=== PATIENT | female | born 2000 | race Caucasian/White ===

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

== ENCOUNTER → 2022-04-17 08:33 | Outpatient (BNVA) | payer BC, SELFPAY | PROVIDERS: Visit Provider Family Medicine Adult Medicine | DX: R30.0 Dysuria (principal); N39.0 Urinary tract infection, site not specified | CPT/HCPCS: 81000 ==

== ENCOUNTER → 2022-09-17 09:27 | Outpatient (BNVA) | payer BC, SELFPAY | PROVIDERS: Visit Provider Nurse Practitioner Family | DX: R30.0 Dysuria (principal); N30.00 Acute cystitis without hematuria | CPT/HCPCS: 81000; 87086 ==

== ENCOUNTER 2023-05-20 09:13 | Inpatient (IN) | payer BC, SELFPAY ==
[2023-05-20 09:24] VITALS: BMI 24.4
[2023-05-20 09:29] VITALS: BP 104/70; PULSE 59; RESP 16; TEMP 37; O2SAT 98
[2023-05-20 09:57] LABS: Eosinophils # 0.1 10^3/uL (0.0-0.8); Eosinophils % 1.5 %; Hematocrit 33.8 % (36-47); Lymphocytes # 1.2 10^3/uL (1.5-6.5); Lymphocytes % 29.7 %; Mean Corpuscular HGB Conc 33.4 g/dL (30-55); Mean Corpuscular Hemoglobin 33.6 pg (27-33); Mean Corpuscular Volume 100.6 fl (85-98); Mean Platelet Volume 10.7 fL (7.4-10.4); Monocytes # 0.3 10^3/uL (0.2-0.9); Monocytes % 7.9 %; Neutrophils % 59.4 %; Nucleated Red Blood Cells % 0 %; Platelet Count 207 10^3/cmm (157-399); Red Blood Count 3.36 10^6/uL (3.85-5.65); White Blood Count 4.04 10^3/uL (4.5-13.0)
--- NOTE | 2023-05-20 09:57 | W.ED.PSYCHS ---
HPI - Psych General: Chief Complaint: Psychiatric Symptoms Stated Complaint: SI Time Seen by Provider: 05/20/23 09:39 Source: patient Mode of arrival: ambulatory History of Present Illness: 22-year-old female presents emergency room with complaint of suicidal ideations plan to harm self by cutting herself with a knife at the wrists. Evidently this has been an ongoing issue for a couple of years she has never done anything to advance lethality its become worse recently. She denies previous hospitalizations for same MD complaint: suicidal ideation and feels depressed Duration: intermittent, changing over time and getting worse Relieving factors: none Exacerbating factors: none Associated symptoms: Reports depression and suicidal ideation Treatments prior to arrival: none If self harm: admits thoughts of self harm and has plan Review of Systems Const: Denies: fever(s) or chills Card: Denies: chest pain Resp: Denies: dyspnea GI: Denies: abdominal pain : Denies: dysuria, urinary frequency or urinary urgency Musc: Denies: neck pain or back pain Skin/Breast: Denies: rash Psych: Reports: depression and suicidal ideation [facility] ED PFSH: Medical History UTI (urinary tract infection) Pyelonephritis of left kidney Social History Smoking and tobacco/nicotine status: never used tobacco/nicotine Alcohol intake: never Substance/Drug Use: never Physical Exam Const: COMMON NORMALS: no acute distress GENERAL APPEARANCE: cooperative and comfortable ORIENTATION/CONSCIOUSNESS: Yes awake, Yes oriented to person, Yes oriented to place and Yes oriented to time HENMT: COMMON NORMALS: normocephalic, atraumatic and hearing grossly normal bilaterally HEAD & SCALP: normocephalic and atraumatic Resp: COMMON NORMALS: normal respiratory effort, No retractions, No use of accessory muscles and clear to auscultation bilaterally AUSCULTATION: clear to auscultation bilaterally Extremity: COMMON NORMALS: normal to inspection, capillary refill normal, no clubbing, cyanosis or edema, no calf tenderness and no pedal edema Neuro: SENSORIUM/ORIENTATION: Yes oriented to person, Yes oriented to place and Yes oriented to time Skin: COMMON NORMALS: no rashes or lesions noted GENERAL SKIN EXAM: no rashes or lesions noted Course Vital Signs: Vital signs: Vital Signs Temperature 98.6 F 05/20/23 09:29 Pulse Rate 59 L 05/20/23 09:29 Respiratory Rate 16 05/20/23 09:29 Blood Pressure 104/70 05/20/23 09:29 Pulse Oximetry 98 05/20/23 09:29 Oxygen Delivery Me thod Room Air 05/20/23 09:29 MDM - Psych Medical Decision Making Patient currently not on any medications having suicidal ideation with increasing intrusive thoughts. Will admit her for suicidal ideation to [facility]PU discussed Dr. Lizarraga orders written Differential Diagnosis Likely suicidal ideation and depression Medical Records I reviewed the patient's medical records. Lab Data I reviewed the patient's lab results. 05/20/23 09:51 05/20/23 09:51 No radiology studies performed this visit Discharge Plan Discharge Patient Disposition: Admitted As Inpatient Clinical Impression: Suicidal ideation, Depression Condition: Stable Prescriptions: No Action nitrofurantoin monohyd/m-cryst [Macrobid] 100 mg capsule 100 mg PO BID 3 Days Qty: 6 0RF Rx Instructions: must administer with a meal/food Patient Instructions: Opioid Safety, Pain Management Coding Level of Care Code ED Quarry Boss for Bebo Dubose
[2023-05-20 10:17] LABS: Acetaminophen < 5.0 ug/mL (10-30); Alanine Aminotransferase 93 U/L (0-33); Albumin Level 5.1 g/dL (3.5-5.2); Alkaline Phosphatase 106 U/L (35-105); Anion Gap 15.3 (5-19); Aspartate Amino Transferase 109 U/L (0-32); Blood Urea Nitrogen 18 mg/dL (6-20); Carbon Dioxide 26 mmol/L (22-29); Chloride 97 mmol/L (98-107); Globulin 3.2 g/dL (1.3-4.6); Glomerular Filtration Rate 44.3 mL/min (90-130); Glucose 108 mg/dL (65-115); Osmolality Calculated 280 mOsm/kg (285-295); Potassium 4.3 mmol/L (3.5-5.1); Salicylate < 0.3 mg/dL (3-10); Sodium 134 mmol/L (136-145); Total Bilirubin 0.8 mg/dL (0.15-1.2); Total Protein 8.3 g/dL (6.6-8.7)
[2023-05-20 10:22] LABS: HCG, Serum Qual Negative (Negative)
[2023-05-20 11:19] VITALS: BMI 23.4
[2023-05-20 11:20] VITALS: BP 90/56; PULSE 58; RESP 14; TEMP 36.9; O2SAT 97
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
[2023-05-20 13:44] LABS: Hepatitis C Virus Antibody Non-Reactive (Nonreactive)
[2023-05-20 14:00] VITALS: BP 89/58; PULSE 69; RESP 13; TEMP 36.8; O2SAT 95
[2023-05-20 20:39] VITALS: BP 99/72; PULSE 67; RESP 16; TEMP 36.7; O2SAT 93
[2023-05-21 06:00] VITALS: BP 91/66; PULSE 83; RESP 18; TEMP 36.7; O2SAT 96
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
[2023-05-21] MEDS: fluoxetine 20 mg Capsule PO (13:27)
[2023-05-21 14:00] VITALS: BP 90/60; PULSE 59; RESP 18; TEMP 36.6; O2SAT 98
[2023-05-21 20:33] VITALS: BP 91/55; PULSE 76; RESP 15; TEMP 36.4; O2SAT 96
[2023-05-22 06:00] VITALS: BP 99/66; PULSE 64; RESP 18; TEMP 36.7; O2SAT 99
[2023-05-22] MEDS: fluoxetine 20 mg Capsule PO (07:58)
[2023-05-22 14:00] VITALS: BP 98/68; PULSE 62; RESP 18; TEMP 36.3; O2SAT 95
--- NOTE | 2023-05-22 17:17 | P.NPUPN_ITS ---
Subjective NPU 2 Subjective: 22-year-old female with a history of dep ression admitted with suicidal ideation. She endorsed an extended history of depression. She had reported no thoughts of cutting herself at this time. She reported having frequent flashbacks regarding her past trauma. She had reported having minimal amounts of nightmares but did state that she had difficulties falling asleep. She reported a history of sleep continuity disruption. She had reported some feelings of hopelessness in the past. She reported no side effects from her medication. She had reported some difficulties with concentration. Mental Status Exam 2 MSE Comments: This is a well-nourished well-developed white female, in hospital scrubs, with adequate grooming and eye contact. No abnormal movements except for signficant psychomotor retardation. She was cooperative with exam in mild distress. Her speech was normal in rate, rhythm and volume. Mood described as a better. Her affect remained flat. Thought process was linear and organized. Thought content: patient denied any suicidal or homicidal ideation, there were no delusions reported or noted, patient denied any auditory or visual hallucinations. Attention, concentration, and memory appeared intact, but none were formally tested. Alert and oriented times three. Insight is fair and judgment appear fair. Impulse control is fair. Vitals/I&O/Wt Last Vital Signs Temp 97.3 F L 05/22/23 14:00 Pulse 62 05/22/23 14:00 Resp 18 05/22/23 14:00 BP 98/68 05/22/23 14:00 Pulse Ox 95 05/22/23 14:00 O2 Del Method Room Air 05/22/23 14:00 Data NPU 05/20/23 09:51 05/20/23 09:51 A&P Assessment and plan (1) Suicidal ideation: (2) Depression: (3) UTI (urinary tract infection): Qualifiers: Urinary tract infection type: acute cystitis Hematuria presence: w [facility] hematuria Qualified Code(s): N30.00 - Acute cystitis without hematuria Plan This is a 22-year-old, white female, with genetic loading for mental health and addiction issues, reporting depression for the last several years and recent suicidal thoughts, with no history of psychiatric interventions, with a willingness to start medication. 1. Continue Prozac 20 mg p.o. every morning. 2. Encourage individual, group, and milieu therapy. 3. Continue q-15-minute checks for safety. Involuntary Hold Information 2 96 Hour Hold: 96 Hour Involuntary Admission: No Attestations NPU 2 Medical Necessity Statement*: Inpatient hospitalization is medically necessary and the clinically appropriate intervention, at this time. We will monitor medications and make changes as indicated. Patient will be in the hospital for over two midnights. Likely length of stay is two to four days. Coding Level of Care Code Acute Code for g Fwd Diagnoses Suicidal ideation R45.851 Depression F32.A Acute cystitis without hematuria N30.00 Urinary tract infection type: acute cystitis Hematuria presence: without hematuria
[2023-05-22 20:12] VITALS: BP 92/64; PULSE 90; RESP 16; TEMP 36.5; O2SAT 96
[2023-05-23 06:00] VITALS: BP 91/55; PULSE 114; RESP 15; TEMP 36.6; O2SAT 96
[2023-05-23] MEDS: fluoxetine 20 mg Capsule PO (08:23)
--- NOTE | 2023-05-23 12:50 | P.NPUPN_ITS ---
Subjective NPU 2 Subjective: 22-year-old female with a history of dep ression admitted with suicidal ideation. She endorsed an extended history of depression that had been worse in the winter months. She endorsed PTSD related symptoms. She reports some feelings of hopelessness. She had reported no previous medication trials prior to prozac. She reports low energy and hypersomnia. Patient reports no suicidal thoughts currently. She reports struggles with concentration and memory with her depression. She endorsed no thoughts of self injury today. She remains somewhat isolative on the milieu. Mental Status Exam 2 MSE Comments: This is a well-nourished well-developed white female, in hospital scrubs, with adequate grooming and eye contact. No abnormal movements except for signficant psychomotor retardation. She was cooperative with exam in mild distress. Her speech was normal in rate, rhythm and volume. Mood described as better. Her affect was restricted in range. Thought process was linear and organized. Thought content: patient denied any suicidal or homicidal ideation, there were no delusions reported or noted, patient denied any auditory or visual hallucinations. Attention, concentration, and memory appeared intact, but none were formally tested. Alert and oriented times three. Insight is fair and judgment appear fair. Impulse control is fair. Vitals/I&O/Wt Last Vital Signs Temp 97.9 F 05/23/23 06:00 Pulse 114 H 05/23/23 06:00 Resp 15 05/23/23 06:00 BP 91/55 05/23/23 06:00 Pulse Ox 96 05/23/23 06:00 O2 Del Method Room Air 05/23/23 06:00 Weight last 48 hrs Weight 58.06 kg Data NPU 05/20/23 09:51 05/20/23 09:51 A&P Assessment and plan (1) Suicidal ideation: (2) Depression: (3) UTI (urinary tract infection): Qualifiers: Urinary tract infection type: acute cystitis Hematuria presence: w [facility] hematuria Qualified Code(s): N30.00 - Acute cystitis without hematuria Plan This is a 22-year-old, white female, with genetic loading for mental health and addiction issues, reporting depression for the last several years and recent suicidal thoughts, with no history of psychiatric interventions, with a willingness to start medication. 1. Continue Prozac 20 mg p.o. every morning. 2. Encourage individual, group, and milieu therapy. 3. Continue q-15-minute checks for safety. Involuntary Hold Information 2 96 Hour Hold: 96 Hour Involuntary Admission: No Attestations NPU 2 Medical Necessity Statement*: Inpatient hospitalization is medically necessary and the clinically appropriate intervention, at this time. We will monitor medications and make changes as indicated. Patient will be in the hospital for over two midnights. Likely length of stay is two to three days. Coding Level of Care Code Acute Code for [facility] Fwd Diagnoses Suicidal ideation R45.851 Depression F32.A Acute cystitis without hematuria N30.00 Urinary tract infection type: acute cystitis Hematuria presence: without hematuria
[2023-05-23 14:00] VITALS: BP 93/64; PULSE 56; RESP 14; TEMP 36.8; O2SAT 100
[2023-05-23 19:29] VITALS: BP 89/62; PULSE 58; RESP 18; TEMP 36.7; O2SAT 96
[2023-05-24 06:00] VITALS: BP 91/64; PULSE 87; RESP 16; O2SAT 98
[2023-05-24] MEDS: fluoxetine 20 mg Capsule PO (07:32)
[2023-05-24 12:11] VITALS: BP 91/64; PULSE 87; RESP 16; O2SAT 98
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
== END 2023-05-24 14:01 | disposition home or self-care (01) | DRG 881 ==
LOC: ER 10:06 → NP 10:34
PROVIDERS: Admitting Provider Psychiatry & Neurology Psychiatry; Emergency Provider Family Medicine; Visit Provider Psychiatry & Neurology Psychiatry
DX: F32.A Depression, unspecified (principal); R45.851 Suicidal ideations; F41.9 Anxiety disorder, unspecified; Z81.8 Family history of other mental and behavioral disorders
CPT/HCPCS: 36415; 80053; 80307; 84703; 85025; 86803; 97150; 97165; 99285

== ENCOUNTER 2023-06-28 00:59 | Inpatient (IN) | payer BC, MEDICAID, SELFPAY ==
[2023-06-28 01:03] VITALS: BP 103/55; PULSE 65; RESP 15; TEMP 36.7; O2SAT 100; BMI 23.4
--- NOTE | 2023-06-28 01:06 | W.ED.PSYCHS ---
HPI - Psych General: Chief Complaint: Psychiatric Symptoms Stated Complaint: SI Time Seen by Provider: 06/28/23 01:00 Source: patient Mode of arrival: ambulatory Limitations: no limitations History of Present Illness: 22-year-old female has a history of depression states that she is having suicidal thoughts she states she has had a plan to cut her wrist with a steak knife to kill herself. Patient has had previous SI in the past denies any worsening proving factors. PFS ED PFSH: Medical History UTI (urinary tract infection) Pyelonephritis of left kidney Social History Smoking and tobacco/nicotine status: never used tobacco/nicotine Alcohol intake: never Substance/Drug Use: never Physical Exam Const: COMMON NORMALS: no acute distress, patient oriented x3 and healthy appearing HENMT: COMMON NORMALS: normocephalic and atraumatic HEAD & SCALP: normocephalic and atraumatic Neck/C-Spine: COMMON NORMALS: full ROM and supple Chest: COMMONS NORMALS: normal inspection of the chest Resp: COMMON NORMALS: normal respiratory effort Cardio: COMMON NORMALS: regular rate, regular rhythm and No murmurs present (Cardio) RATE: regular rate RHYTHM: regular rhythm Extremity: COMMON NORMALS: normal to inspection and full ROM Neuro: COMMON NORMALS: patient oriented x3, moves all extremities and no focal motor deficits Psych: COMMON NORMALS: mental status grossly normal, Normal thought process present and cooperative MOOD & AFFECT: Yes depressed mood THOUGHT PROCESS: Normal thought process present THOUGHT CONTENT: Yes Suicidality present Skin: COMMON NORMALS: no rashes or lesions noted and no wounds GENERAL SKIN EXAM: no rashes or lesions noted Course Vital Signs: Vital signs: Vital Signs Temperature 98.1 F 06/28/23 01:03 Pulse Rate 65 06/28/23 01:03 Respiratory Rate 15 06/28/23 01:03 Blood Pressure 103/55 06/28/23 01:03 Pulse Oximetry 100 06/28/23 01:03 Oxygen Delivery Me thod Room Air 06/28/23 01:03 MDM - Psych Medical Decision Making Patient presents here with suicidal ideation patient's medically cleared she is excepted the psychiatric facility and will admit. Medical Records I reviewed the patient's medical records. Lab Data I reviewed the patient's lab results. 06/28/23 01:25 06/28/23 01:25 Laboratory Results WBC 3.92 10^3/uL (4.5-13.0) L 06/28/23 01:25 RBC 3.99 10^6/uL (3.85-5.65) 06/28/23 01:25 Hgb 13.30 g/dL (12.4-14.8) 06/28/23 01:25 Hct 41.1 % (36-47) 06/28/23 01:25 MCV 103.0 fl (85-98) H 06/28/23 01:25 MCH 33.3 pg (27-33) H 06/28/23 01:25 MCHC 32.4 g/dL (30-55) 06/28/23 01:25 RDW 12.9 % (12.1-15.1) 06/28/23 01:25 Plt Count 213 10^3/cmm (157-399) 06/28/23 01:25 MPV 12.1 fL (7.4-10.4) H 06/28/23 01:25 Neut % (Auto) 56.4 % 06/28/23 01:25 Lymph % (Auto) 30.6 % 06/28/23 01:25 Sumner % (Auto) 7.1 % 06/28/23 01:25 Eos % (Auto) 2.6 % 06/28/23 01:25 Baso % (Auto) 3.3 % 06/28/23 01:25 Neut # (Auto) 2.21 10^3/uL (1.8-8.0) 06/28/23 01:25 Lymph # (Auto) 1.2 10^3/uL (1.5-6.5) L 06/28/23 01:25 Sumner # (Auto) 0.3 10^3/uL (0.2-0.9) 06/28/23 01:25 Eos # (Auto) 0.1 10^3/uL (0.0-0.8) 06/28/23 01:25 Baso # (Auto) 0.1 10^3/uL (0.0-0.1) 06/28/23 01:25 Nucleated RBC % (auto) 0 % 06/28/23 01:25 Nucleated RBCs # 0.0 /100WBC 06/28/23 01:25 Sodium 137 mmol/L (136-145) 06/28/23 01:25 Potassium 3.8 mmol/L (3.5-5.1) 06/28/23 01:25 Chloride 99 mmol/L (98-107) 06/28/23 01:25 Carbon Dioxide 24 mmol/L (22-29) 06/28/23 01:25 Anion Gap 17.8 (5-19) 06/28/23 01:25 BUN 13 mg/dL (6-20) 06/28/23 01:25 Creatinine 1.4 mg/dL (0.5-0.9) H 06/28/23 01:25 GFR Calculation 47.9 mL/min (90-130) L 06/28/23 01:25 Glucose 91 mg/dL (65-115) 06/28/23 01:25 Calculated Osmolality 284 mOsm/kg (285-295) L 06/28/23 01:25 Calcium 11.1 mg/dL (8.5-10.5) H 06/28/23 01:25 Total Bilirubin 0.7 mg/dL (0.15-1.2) 06/28/23 01:25 AST 114 U/L (0-32) H 06/28/23 01:25 ALT 119 U/L (0-33) H 06/28/23 01:25 Alkaline Phosphatase 114 U/L (35-105) H 06/28/23 01:25 Total Protein 9.1 g/dL (6.6-8.7) H 06/28/23 01:25 Albumin 5.4 g/dL (3.5-5.2) H 06/28/23 01:25 Globulin 3.7 g/dL (1.3-4.6) 06/28/23 01:25 HCG, Qual Negative (Negative) 06/28/23 01:25 Salicylates < 0.3 mg/dL (3-10) L 06/28/23 01:25 Urine Opiates Screen Negative ng/mL (Negative) 06/28/23 01:25 Acetaminophen < 5.0 ug/mL (10-30) L 06/28/23 01:25 Ur Barbiturates Screen Negative ng/mL (Negative) 06/28/23 01:25 Ur Phencyclidine Scrn Negative ng/mL (Negative) 06/28/23 01:25 Ur Amphetamines Screen Negative ng/mL (Negative) 06/28/23 01:25 U Benzodiazepines Scrn Positive ng/mL (Negative) H 06/28/23 01:25 Urine Cocaine Screen Negative ng/mL (Negative) 06/28/23 01:25 U Marijuana (THC) Screen Negative ng/mL (Negative) 06/28/23 01:25 Ethyl Alcohol < 10 mg/dL (0-10) 06/28/23 01:25 No radiology studies performed this visit Discharge Plan Discharge Prescriptions: No Action fluoxetine 20 mg Capsule 20 mg PO DAILY 30 Days Qty: 30 1RF Coding Level of Care Code ED Stock Plan Administrator for Bebo Dubose
--- NOTE | 2023-06-28 01:16 | PC.NURSE ---
pt grandmother pt gave permission to this nurse to let grandmother know she was here. however grandmother is not on pt current phi, and that was all the information the patient wanted given. this nurse asked for grandmother to call the person who brought patient to the er if she was here. this nurse told pt she could call grandmother tomorrow if she wished and let her know she was here.
[2023-06-28 01:28] LABS: Basophils # 0.1 10^3/uL (0.0-0.1); Basophils % 3.3 %; Eosinophils # 0.1 10^3/uL (0.0-0.8); Eosinophils % 2.6 %; Hematocrit 41.1 % (36-47); Lymphocytes # 1.2 10^3/uL (1.5-6.5); Lymphocytes % 30.6 %; Mean Corpuscular HGB Conc 32.4 g/dL (30-55); Mean Corpuscular Hemoglobin 33.3 pg (27-33); Mean Platelet Volume 12.1 fL (7.4-10.4); Monocytes # 0.3 10^3/uL (0.2-0.9); Monocytes % 7.1 %; Neutrophils # 2.21 10^3/uL (1.8-8.0); Neutrophils % 56.4 %; Nucleated Red Blood Cells % 0 %; Platelet Count 213 10^3/cmm (157-399); Red Blood Count 3.99 10^6/uL (3.85-5.65); Red Cell Distribution Width 12.9 % (12.1-15.1); White Blood Count 3.92 10^3/uL (4.5-13.0)
[2023-06-28 01:40] LABS: Amphetamines Screen Urine Negative (Negative); Barbiturates Screen Urine Negative (Negative); Benzodiazepines Screen Urine Positive (Negative); Cocaine Screen Urine Negative (Negative); HCG, Serum Qual Negative (Negative); Opiate Screen Urine Negative (Negative); PCP Screen Urine Negative (Negative); THC Screen Urine Negative (Negative)
[2023-06-28 01:50] LABS: Acetaminophen < 5.0 ug/mL (10-30); Alanine Aminotransferase 119 U/L (0-33); Albumin Level 5.4 g/dL (3.5-5.2); Alcohol Level < 10 mg/dL (0-10); Alkaline Phosphatase 114 U/L (35-105); Anion Gap 17.8 (5-19); Aspartate Amino Transferase 114 U/L (0-32); Blood Urea Nitrogen 13 mg/dL (6-20); Calcium 11.1 mg/dL (8.5-10.5); Carbon Dioxide 24 mmol/L (22-29); Chloride 99 mmol/L (98-107); Globulin 3.7 g/dL (1.3-4.6); Glomerular Filtration Rate 47.9 mL/min (90-130); Glucose 91 mg/dL (65-115); Osmolality Calculated 284 mOsm/kg (285-295); Potassium 3.8 mmol/L (3.5-5.1); Salicylate < 0.3 mg/dL (3-10); Sodium 137 mmol/L (136-145); Total Bilirubin 0.7 mg/dL (0.15-1.2); Total Protein 9.1 g/dL (6.6-8.7)
--- NOTE | 2023-06-28 02:15 | PC.NURSE ---
[facility] was served to pt by the RN and security. Pt A&Ox3, all questions answered.
[2023-06-28 02:23] VITALS: BP 98/71; PULSE 64; RESP 18; TEMP 36.4; O2SAT 99
[2023-06-28 02:52] VITALS: BP 103/55; PULSE 65; RESP 15; TEMP 36.7; O2SAT 100
[2023-06-28] MEDS: ibuprofen 600 mg Tablet PO (03:04)
[2023-06-28 06:00] VITALS: BP 73/55; PULSE 81; RESP 15; TEMP 36.7; O2SAT 92
[2023-06-28 14:00] VITALS: BP 90/66; PULSE 75; RESP 14; TEMP 36.5; O2SAT 98
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
[2023-06-28 20:22] VITALS: BP 90/57; PULSE 84; RESP 16; TEMP 36.6; O2SAT 96
[2023-06-29 06:00] VITALS: BP 90/57; PULSE 73; RESP 16; TEMP 36.8; O2SAT 98
[2023-06-29] MEDS: fluoxetine 10 mg Capsule 30 MG PO (09:15)
--- NOTE | 2023-06-29 12:12 | CT_ITS ---
WS: [id number] CT ABDOMEN AND PELVIS NONCONTRAST HISTORY: abnormal labs TECHNIQUE: Imaging performed through the abdomen and pelvis. Coronal and sagittal reformats are submi tted. All CT scans at [facility] use at least one of these dose optimization techniques: auto mated exposure control; mA and/or kV adjustment per patient size (includes targeted exams where dose is matched to clinical indication); or iterative reconstruction. DLP: 329.86 mGy.cm COMPARISON: 12/29/2021 Lower thorax: Small hiatal hernia. Otherwise negative. Liver: Liver is top normal size. Mild heterogeneity from hepatic steatosis with areas of sparing. No bile duct dilatation. Gallbladder: Normal gallbladder. No pericholecystic fluid or cholelithiasis. No gallbladder wall thic kening. Pancreas: Normal size and attenuation. Normal pancreatic duct. No pancreatitis or mass. Spleen: Normal. Adrenal glands: Normal. No mass. Right kidney: Normal size kidney with no mass or hydronephrosis. Left kidney: Nonobstructing 4 mm calcification in the renal pelvis. Aorta: Normal abdominal aorta, no aneurysm or atherosclerosis. No free fluid, intraperitoneal air or significant lymphadenopathy. GI tract: Normal stomach. No small bowel obstruction. Mild constipation. Normal appendix. There is mi ld stranding in the perirectal fat which was also seen on the prior examination of uncertain etiology . Abdominal wall: Negative. No hernia. Pelvis: Normal uterus and ovaries on the unenhanced CT. Osseous structures: Unremarkable. IMPRESSION: 1. No GI tract obstruction. 2. Mild perirectal fat stranding of uncertain etiology. Consider proctitis. 3. Normal appendix. 4. No renal obstruction.
[2023-06-29 13:08] LABS: HIV 1 & 2 Antibody Non-Reactive (Non-Reactiv); HIV 1 & 2 Antigen Non-Reactive (Non-Reactiv)
[2023-06-29 13:22] LABS: Hepatitis A Antibody IgM Non-Reactive (Nonreactive); Hepatitis B Core AB, Total Non-Reactive (Nonreactive); Hepatitis B Surface AB < 3.5 (11.5-1000); Hepatitis B Surface Antigen Non-Reactive (Nonreactive); Hepatitis C Virus Antibody Non-Reactive (Nonreactive)
[2023-06-29 14:00] VITALS: BP 89/58; PULSE 56; RESP 14; TEMP 36.6; O2SAT 98
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
[2023-06-29 16:30] VITALS: BP 95/69
[2023-06-29 20:02] VITALS: BP 97/70; PULSE 52; RESP 16; TEMP 36.5; O2SAT 99
[2023-06-30 06:00] VITALS: BP 96/63; PULSE 77; RESP 16; TEMP 36.6; O2SAT 99
[2023-06-30 07:39] LABS: Basophils # 0.1 10^3/uL (0.0-0.1); Basophils % 2.2 %; Eosinophils # 0.1 10^3/uL (0.0-0.8); Eosinophils % 2.5 %; Hematocrit 37.2 % (36-47); Lymphocytes % 32.9 %; Mean Corpuscular HGB Conc 33.3 g/dL (30-55); Mean Corpuscular Hemoglobin 33.6 pg (27-33); Mean Corpuscular Volume 100.8 fl (85-98); Mean Platelet Volume 11.7 fL (7.4-10.4); Monocytes # 0.3 10^3/uL (0.2-0.9); Monocytes % 8.2 %; Neutrophils % 53.9 %; Nucleated Red Blood Cells % 0 %; Platelet Count 181 10^3/cmm (157-399); Red Blood Count 3.69 10^6/uL (3.85-5.65); Red Cell Distribution Width 12.8 % (12.1-15.1); White Blood Count 3.16 10^3/uL (4.5-13.0)
[2023-06-30 07:54] LABS: Alanine Aminotransferase 109 U/L (0-33); Albumin Level 4.7 g/dL (3.5-5.2); Alkaline Phosphatase 96 U/L (35-105); Anion Gap 15.8 (5-19); Aspartate Amino Transferase 132 U/L (0-32); Blood Urea Nitrogen 15 mg/dL (6-20); Calcium 10.3 mg/dL (8.5-10.5); Carbon Dioxide 26 mmol/L (22-29); Chloride 99 mmol/L (98-107); Globulin 2.8 g/dL (1.3-4.6); Glomerular Filtration Rate 47.9 mL/min (90-130); Glucose 72 mg/dL (65-115); Osmolality Calculated 283 mOsm/kg (285-295); Potassium 3.8 mmol/L (3.5-5.1); Sodium 137 mmol/L (136-145); Total Bilirubin 0.6 mg/dL (0.15-1.2); Total Protein 7.5 g/dL (6.6-8.7)
[2023-06-30 08:03] LABS: Tumor Marker Alpha Fetoprotein 7.3 ng/mL (0-8.3)
[2023-06-30 08:44] LABS: Estmated Average Glucose 91; Hemoglobin A1C 4.8 % (4.0-6.0)
[2023-06-30] MEDS: fluoxetine 10 mg Capsule 30 MG PO (09:12)
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
[2023-06-30] MEDS: azithromycin 250 mg Tablet 1000 MG PO (11:59)
[2023-06-30] MEDS: doxycycline 100 mg Tablet PO ×2 (11:59→18:10)
[2023-06-30 14:00] VITALS: BP 88/65; PULSE 99; RESP 18; TEMP 36.6; O2SAT 98
--- NOTE | 2023-06-30 15:23 | P.NPUPN_ITS ---
Subjective NPU 2 Subjective: 22-year-old female with a history of dep ression admitted with suicidal ideation. Patient had reported that she was worried and reports fleeting suicidal thoughts today. She had continued to report PTSD related symptoms including flashbacks and intense recollections regarding her trauma. Patient reported adequate sleep but reported an extended history of low energy and anhedonia. Patient reports that she is willing to consider psychotherapy. She had remained somewhat isolative on the unit but was able to attend groups. She had reported adequate appetite but reported having pain after eating on a daily basis for weeks. Mental Status Exam 2 MSE Comments: This is a thin pale, dimunitive white female, in hospital scrubs, with poor grooming and fleeting eye contact. She appeared anergic. No abnormal movements except for mild psychomotor retardation. Cooperative with exam in mild distress. Speech was normal rate and volume. Mood described as depressed and anxious. Her affect was mood congruent and restricted. Thought process was linear,logical, and goal-directed. Thought content: the patient denied any homicidal or suicidal ideation. There were no evidence of delusional thinking reported or noted, patient denied any auditory or visual hallucinations. Attention, concentration, and memory appeared intact, but none were formally tested. Alert and oriented times three. Insight was poor and judgment appear poor. Impulse control is impaired. Vitals/I&O/Wt Last Vital Signs Temp 97.8 F 06/30/23 06:00 Pulse 77 06/30/23 06:00 Resp 16 06/30/23 06:00 BP 96/63 06/30/23 06:00 Pulse Ox 99 06/30/23 06:00 O2 Del Method Room Air 06/29/23 20:02 Data NPU 06/30/23 07:27 06/30/23 07:27 A&P Assessment and plan (1) Suicidal ideation: (2) Depression: (3) Major depressive disorder, recurrent: Plan This is a 22-year-old, white female, with genetic loading for mental health and addiction issues, with a history of MDD, recently discharged one month ago, readmitted with suicidal ideation with plan. 1. Increase Prozac 40mg daily. 2. Encourage individual, group, and milieu therapy. 3. Continue q-15-minute checks for safety. 4. Medicine consult appreciated regarding labs that appear abnormal-will make referral for GI prior to discharge, continue antibiotics to tx potential STD, concern regarding anemia, abnormal LFT. CT abdomen and pelvis appeared nonspecific. Involuntary Hold Information 2 96 Hour Hold: 96 Hour Involuntary Admission: Yes 96 Hour Hold Ending Date: 07/02/23 96 Hour Hold Ending Time: 01:22 Attestations NPU 2 Medical Necessity Statement*: Inpatient hospitalization is medically necessary and the clinically appropriate intervention, at this time. We will monitor medications and make changes as indicated. The patient's likely length of stay is 2-3 days. Coding Level of Care Code Acute Code for Chg Fwd Diagnoses Suicidal ideation R45.851 Depression F32.A Major depressive disorder, recurrent F33.9
[2023-06-30 18:33] LABS: HCG, Serum Qual Negative (Negative)
[2023-06-30 20:20] VITALS: BP 85/51; PULSE 68; RESP 16; TEMP 36.3; O2SAT 95
[2023-07-01 06:00] VITALS: BP 90/65; PULSE 61; RESP 15; TEMP 36.7; O2SAT 99
[2023-07-01 08:10] LABS: Basophils # 0.1 10^3/uL (0.0-0.1); Basophils % 2.4 %; Eosinophils # 0.1 10^3/uL (0.0-0.8); Eosinophils % 3.3 %; Hematocrit 35.7 % (36-47); Lymphocytes # 1.2 10^3/uL (1.5-6.5); Lymphocytes % 33.1 %; Mean Corpuscular HGB Conc 33.3 g/dL (30-55); Mean Corpuscular Hemoglobin 33.4 pg (27-33); Mean Corpuscular Volume 100.3 fl (85-98); Mean Platelet Volume 11.8 fL (7.4-10.4); Monocytes # 0.4 10^3/uL (0.2-0.9); Monocytes % 9.5 %; Neutrophils # 1.87 10^3/uL (1.8-8.0); Neutrophils % 50.6 %; Nucleated Red Blood Cells % 0 %; Platelet Count 189 10^3/cmm (157-399); Red Blood Count 3.56 10^6/uL (3.85-5.65); Red Cell Distribution Width 12.8 % (12.1-15.1); White Blood Count 3.69 10^3/uL (4.5-13.0)
[2023-07-01 08:31] LABS: Alanine Aminotransferase 124 U/L (0-33); Albumin Level 4.5 g/dL (3.5-5.2); Alkaline Phosphatase 91 U/L (35-105); Anion Gap 15.8 (5-19); Aspartate Amino Transferase 141 U/L (0-32); Blood Urea Nitrogen 14 mg/dL (6-20); Calcium 10.2 mg/dL (8.5-10.5); Carbon Dioxide 26 mmol/L (22-29); Chloride 101 mmol/L (98-107); Globulin 2.6 g/dL (1.3-4.6); Glomerular Filtration Rate 44.3 mL/min (90-130); Glucose 78 mg/dL (65-115); Osmolality Calculated 287 mOsm/kg (285-295); Potassium 3.8 mmol/L (3.5-5.1); Sodium 139 mmol/L (136-145); Total Bilirubin 0.5 mg/dL (0.15-1.2); Total Protein 7.1 g/dL (6.6-8.7)
[2023-07-01] MEDS: fluoxetine 20 mg Capsule 40 MG PO (08:59)
[2023-07-01] MEDS: doxycycline 100 mg Tablet PO ×2 (08:59→16:50)
--- NOTE | 2023-07-01 09:55 | P.PN_ITS ---
Subjective 2 Subjective: I will transfer to [facility] for IV fluid bolus She is still hypertensive with worsening of creatinine Will request respiratory panel abnormal liver enzymes noted She received ceftriaxone and azithromycin yesterday Abnormal TSH, requested free T4 Vitals/I&O/Wt Last Vital Signs Temp 98.1 F 07/01/23 06:00 Pulse 61 07/01/23 06:00 Resp 15 07/01/23 06:00 BP 90/65 07/01/23 06:00 Pulse Ox 99 07/01/23 06:00 O2 Del Method Room Air 07/01/23 06:00 Physical Exam 2 Narrative: Pleasant cooperative Nonfocal neuroexam S1, S2 Abdomen soft No signs of UTI No sign of meningitis Pleasant No active chest pain or shortness of breath Doing well on room air Data 07/01/23 07:54 07/01/23 07:54 A&P Assessment and plan (1) Depression: (2) Thyroid function study abnormality: (3) Abnormal LFTs: (4) Proctitis: (5) BAL (acute kidney injury): Plan Transfer to [facility] Start IV fluids Discontinue ibuprofen Check free T4 Check respiratory panel Received empirical antibiotic coverage for possible STD with ceftriaxone intramuscular and azithromycin 1 g Continue doxycycline Leukopenia noted Hepatitis panel HIV panel negative Attestations 2 Medical Necessity Statement*: Will transfer back to psych unit once creatinine improves Diagnoses Depression F32.A Thyroid function study abnormality R94.6 Abnormal LFTs R79.89 Proctitis K62.89 BAL (acute kidney injury) N17.9
--- NOTE | 2023-07-01 10:31 | PC.NURSE ---
called report to med-surg.
[2023-07-01 11:07] VITALS: BP 101/71; PULSE 54; RESP 16; O2SAT 94
[2023-07-01] MEDS: sodium chloride 0.9% 1,000 ML 125 ML IV ×2 (11:20→20:14)
[2023-07-01 13:21] LABS: Adenovirus Not Detected (NOT DETECT); Chlamydia Pneumoniae Not Detected (NOT DETECT); Coronavirus 229E,HKU1,NL63,OC4 Not Detected (NOT DETECT); Human Metapneumovirus Not Detected (NOT DETECT); Human Rhinovirus/Enterovirus Not Detected (NOT DETECT); Influenza A Not Detected (NOT DETECT); Influenza A H1 Not Detected (NOT DETECT); Influenza A H1-2009 Not Detected (NOT DETECT); Influenza A H3 Not Detected (NOT DETECT); Influenza B Not Detected (NOT DETECT); Mycoplasma Pneumoniae Not Detected (NOT DETECT); Parainfluenza Virus Type 1 Not Detected (NOT DETECT); Parainfluenza Virus Type 2 Not Detected (NOT DETECT); Parainfluenza Virus Type 3 Not Detected (NOT DETECT); Parainfluenza Virus Type 4 Not Detected (NOT DETECT); Respiratory Syncytial Virus A Not Detected (NOT DETECT); Respiratory Syncytial Virus B Not Detected (NOT DETECT); SARS-COV-2 Not Detected (NOT DETECT)
--- NOTE | 2023-07-01 13:44 | P.NPUPN_ITS ---
Subjective NPU 2 Subjective: Patient presented today reporting that she is doing fine from a psychiatric standpoint. She reports that she knows she is still here secondary to her medical comorbidities but she seems unclear about what they actually are. We discussed making sure she understood what the doctors are identifying is the problem. Otherwise we discussed the fact that Dr. Marin and felt she would be ready to leave except for these medical challenges and that we will plan for discharge after she is medically cleared. Mental Status Exam 2 MSE Comments: This is a well-nourished well-developed white female, in hospital scrubs, with adequate grooming and eye contact. No abnormal movements except for mild psychomotor retardation. Cooperative with exam in no acute distress. Speech was normal rate and volume. Mood described as better; affect appears euthymic. Thought process, organized. Thought content: patient denied any suicidal or homicidal ideation, there were no delusions reported or noted, patient denied any auditory or visual hallucinations. Attention, concentration, and memory appeared intact, but none were formally tested. Alert and oriented times three. Insight and judgment appear fair. Impulse control is fair. Vitals/I&O/Wt Last Vital Signs Temp 98.1 F 07/01/23 06:00 Pulse 54 L 07/01/23 11:07 Resp 16 07/01/23 11:07 BP 101/71 07/01/23 11:07 Pulse Ox 94 07/01/23 11:07 O2 Del Method Room Air 07/01/23 11:07 06/30/23 07/01/23 07/01/23 22:59 06:59 14:59 Intake Total 240 / 240 Balance 240 / 240 Data NPU 07/02/23 04:12 07/02/23 04:12 A&P Assessment and plan (1) Suicidal ideation: (2) Depression: (3) Major depressive disorder, recurrent: Plan This is a 22-year-old, white female, with genetic loading for mental health and addiction issues, with a history of MDD, recently discharged one month ago, readmitted with suicidal ideation with plan. 1. Increase Prozac 40mg daily. 2. Encourage individual, group, and milieu therapy. 3. Continue q-15-minute checks for safety. 4. Medicine consult appreciated regarding labs that appear abnormal-will make referral for GI prior to discharge, continue antibiotics to tx potential STD, concern regarding anemia, abnormal LFT. CT abdomen and pelvis appeared nonspecific. 5. Allow 96-hour hold to and make sure patient gets and then. She will be ready to discharge when medically cleared. Involuntary Hold Information 2 96 Hour Hold: 96 Hour Involuntary Admission: Yes 96 Hour Hold Ending Date: 07/02/23 96 Hour Hold Ending Time: 01:22 Attestations NPU 2 Medical Necessity Statement*: Inpatient hospitalization is medically necessary and the clinically appropriate intervention, at this time. We will monitor medications and make changes as indicated. The patient's likely length of stay is 1-3 days. Coding Level of Care Code Acute Code for Chg Fwd Diagnoses Suicidal ideation R45.851 Depression F32.A Major depressive disorder, recurrent F33.9
[2023-07-01 16:00] VITALS: BP 105/79; PULSE 58; RESP 17; O2SAT 100
--- NOTE | 2023-07-01 16:01 | US_ITS ---
WS: [id number] ULTRASOUND THYROID TECHNIQUE: Ultrasound of the thyroid. CLINICAL INFORMATION: hypothyroid COMPARISON: None. FINDINGS: Thyroid: Atrophic diminutive thyroid gland for a patient of this age. Right thyroid lobe: 2.8 cm x 1.0 cm x 0.7 cm Hypoechoic nodule in the RIGHT mid thyroid near the isthmus measuring 6.7 x 6.1 x 2.2 mm. Left thyroid lobe: 2.7 cm x 1.0 cm x 0.5 cm. Isthmus: 0.3 mm. Cervical lymphadenopathy: None. IMPRESSION: 1. Atrophic diminutive thyroid gland for a patient of this age. Recommend correlation with thyroid f unction studies. 2. Hypoechoic nodule in the RIGHT mid thyroid near the isthmus measuring 6.7 x 6.1 x 2.2 mm. Recomme nd 12-month follow-up. 3. No other suspicious findings.
[2023-07-01] MEDS: levothyroxine 50 mcg Tablet PO (16:50)
[2023-07-01 16:51] LABS: Chlamydia Trachomatis RNA TMA NOT DETECTED (NOT DETECTED); Neisseria Gonorrhoeae RNA, TMA NOT DETECTED (NOT DETECTED)
[2023-07-01 20:00] VITALS: BP 92/63; PULSE 100; RESP 16; TEMP 36.6; O2SAT 99
[2023-07-02] VITALS: BP 99/66; PULSE 52; RESP 15; TEMP 36.4; O2SAT 98
[2023-07-02 02:05] LABS: Follicle Stimulating Hormone 4.1 mIU/mL; Luteinizing Hormone 5.1 mIU/mL (0.5-41.7); Prolactin 38.78 ng/mL (4.8-23.3)
[2023-07-02] MEDS: sodium chloride 0.9% 1,000 ML 125 ML IV ×3 (02:57→17:03)
[2023-07-02 04:00] VITALS: BP 91/61; PULSE 69; RESP 15; TEMP 36.6; O2SAT 94
[2023-07-02 04:22] LABS: Basophils # 0.1 10^3/uL (0.0-0.1); Basophils % 2.1 %; Eosinophils # 0.1 10^3/uL (0.0-0.8); Eosinophils % 3.7 %; Lymphocytes # 1.3 10^3/uL (1.5-6.5); Lymphocytes % 39.1 %; Mean Corpuscular HGB Conc 33.8 g/dL (30-55); Mean Corpuscular Hemoglobin 33.3 pg (27-33); Mean Corpuscular Volume 98.8 fl (85-98); Mean Platelet Volume 11.8 fL (7.4-10.4); Monocytes # 0.3 10^3/uL (0.2-0.9); Monocytes % 7.6 %; Neutrophils # 1.55 10^3/uL (1.8-8.0); Neutrophils % 47.5 %; Nucleated Red Blood Cells % 0 %; Platelet Count 175 10^3/cmm (157-399); Red Blood Count 3.24 10^6/uL (3.85-5.65); Red Cell Distribution Width 12.7 % (12.1-15.1); White Blood Count 3.27 10^3/uL (4.5-13.0)
[2023-07-02 04:39] LABS: Alanine Aminotransferase 89 U/L (0-33); Albumin Level 4.1 g/dL (3.5-5.2); Alkaline Phosphatase 81 U/L (35-105); Anion Gap 14.5 (5-19); Aspartate Amino Transferase 85 U/L (0-32); Blood Urea Nitrogen 10 mg/dL (6-20); Calcium 9.4 mg/dL (8.5-10.5); Carbon Dioxide 23 mmol/L (22-29); Chloride 106 mmol/L (98-107); Globulin 2.2 g/dL (1.3-4.6); Glomerular Filtration Rate 57.3 mL/min (90-130); Glucose 78 mg/dL (65-115); Osmolality Calculated 288 mOsm/kg (285-295); Potassium 3.5 mmol/L (3.5-5.1); Sodium 140 mmol/L (136-145); Total Bilirubin 0.4 mg/dL (0.15-1.2); Total Protein 6.3 g/dL (6.6-8.7)
[2023-07-02] MEDS: levothyroxine 50 mcg Tablet PO (05:16)
[2023-07-02 07:05] VITALS: BP 92/60; PULSE 56; RESP 16; TEMP 36.6; O2SAT 97
[2023-07-02] MEDS: doxycycline 100 mg Tablet PO ×2 (08:06→17:03)
[2023-07-02] MEDS: fluoxetine 20 mg Capsule 40 MG PO (08:06)
--- NOTE | 2023-07-02 10:21 | P.PN_ITS ---
Subjective 2 Subjective: Patient is stating that she has been having menstrual cycle every 3 to 6 months, She does have hypothyroid symptoms As per Dr. Lizarraga she is not on 96-hour hold they were planning to discharge her I am planning to continue IV fluids for 1 more day Adjust levothyroxine dose Normal LH FSH Prolactin not significantly high She will need endocrinology outpatient follow-up Creatinine creatinine 1.2 I do suspect autoimmune disease at this point She will need a close follow-up Vitals/I&O/Wt Last Vital Signs Temp 97.8 F 07/02/23 07:05 Pulse 56 L 07/02/23 07:05 Resp 16 07/02/23 07:05 BP 92/60 07/02/23 07:05 Pulse Ox 97 07/02/23 07:05 O2 Del Method Room Air 07/02/23 07:05 07/01/23 07/02/23 07/02/23 22:59 06:59 14:59 Intake Total 1120 / 1360 839.583 / 2199.583 802.083 / 802.083 Balance 1120 / 1360 839.583 / 2199.583 802.083 / 802.083 Physical Exam 2 Narrative: Pleasant and cooperative GCS 15 Nonfocal neuroexam No signs of dehydration In good spirits No active suicidal thoughts Currently on room air Has IV fluids Adequate urine output Data 07/02/23 04:12 07/02/23 04:12 A&P Assessment and plan (1) Depression: (2) Thyroid function study abnormality: (3) Abnormal LFTs: (4) Proctitis: (5) BAL (acute kidney injury): Plan Hypothyroid Thyroid nodule, atrophic thyroid gland Primary hypothyroidism I have started patient on levothyroxine Pituitary hormones are normal such as cortisol LH and FSH Patient does experience disturbed menstrual cycle she gets menstrual cycle every 3 months I will give her referral to see Dr. Solo outpatient adjust her levothyroxine dose We have also set up an appointment with Dr. Davila Continue IV fluids creatinine improving Transaminases improving My suspicion is related to autoimmune disease Full code Discharge likely tomorrow Is not a 96-hour hold anymore Attestations 2 Medical Necessity Statement*: Discharge tomorrow Diagnoses Depression F32.A Thyroid function study abnormality R94.6 Abnormal LFTs R79.89 Proctitis K62.89 BAL (acute kidney injury) N17.9
[2023-07-02 10:38] LABS: Anti-Nuclear Antibody Pattern Nuclear, Homogeneous; Anti-Nuclear Antibody Screen POSITIVE (NEGATIVE); Anti-Nuclear Antibody Titer 1:40 titer
[2023-07-02 10:43] VITALS: BP 129/85; PULSE 60; RESP 18; TEMP 36.7; O2SAT 98
--- NOTE | 2023-07-02 11:42 | DCPLANNER ---
Per Dr Joe wants patient to see Dr Solo before seeing Dr Iverson. Patient will be a new patient at both offices. This person called Endocrinology call was picked up by answering service. They stated that they could not make appointment for due to it being a new patient but would send a message to the clinic. This person also sent a message to the clinic. Had not got a call or message back from clinic so this person walked to clinic and was told there wasn't anyone there who could schedule the appointment at this time but they would schedule and call back today.
--- NOTE | 2023-07-02 11:48 | DCPLANNER ---
Per Dr Joe wants patient to be seen by Dr Solo before Dr Iverson. This person called endocrinology office and call was picked up by answering service. This person was told that they could not schedule the appointment due to being a new patient but they would send a message to the clinic. This person also sent a message to the clinic. At 1115 still had not heard anything from the clinic so this person walked to the clinic. Clin Tech stated there is no one in the office at the moment that can schedule but will relay the message when that person returns and will call med/surg back today with appointment information
[2023-07-02 16:00] VITALS: BP 106/70; PULSE 56
[2023-07-02 20:00] VITALS: BP 98/62; PULSE 73; RESP 17; TEMP 36.4; O2SAT 98
[2023-07-03] VITALS: BP 95/65; PULSE 73; RESP 17; TEMP 36.7; O2SAT 95
[2023-07-03] MEDS: sodium chloride 0.9% 1,000 ML 125 ML IV (01:51)
[2023-07-03 04:00] VITALS: BP 111/75; PULSE 60; RESP 18; TEMP 37.1; O2SAT 99
[2023-07-03] MEDS: levothyroxine 50 mcg Tablet PO (05:26)
[2023-07-03 07:41] VITALS: BP 107/73; PULSE 57; RESP 17; TEMP 36.8; O2SAT 98
--- NOTE | 2023-07-03 09:21 | PM.DCS ---
Discharge Providers Date of Admission: 06/28/23 02:22 Date of Discharge: July 03, 2023 Attending Provider at Admission: Lavelle Lizarraga MD Attending Provider at Discharge: Herbert Marin MD Primary Care Provider: Gwendolyn Kamara DO Diagnoses at Discharge Discharge Diagnosis (1) Depression: Status: Acute (2) Thyroid function study abnormality: Status: Acute (3) Abnormal LFTs: Status: Acute (4) Proctitis: Status: Acute (5) BAL (acute kidney injury): Status: Acute Reason for Visit Reason for Visit: SI Hospital Course Hospital Course 22-year-old female who was admitted to psychiatric unit for suicidal ideation, she was put on 96-hour hold, hospital service was requested for her abnormal transaminases evaluation. Patient was hypotensive with BAL. She was put on IV fluids which improved her BAL, she was dehydrated, bradycardia noted with sleep, I had suspicion regarding autoimmune disease requested autoimmune workup along TSH her TSH is above 450 with low T4 she does seem to have atrophic thyroid on ultrasound, spoke with Dr. Solo, she will get outpatient referral to see panel flow machine operator, we have also set up PCP appointment for her. She will get 1.6 times ideal body weight levothyroxine supplementation I will put her on 100 mcg levothyroxine for now along Medrol pack at the time of discharge. LH FSH enzymes are normal, SVEN positive, I have requested SLE, p-ANCA, c-ANCA, AMA antibodies. She does have persistently elevated liver enzymes related to autoimmune disease. Patient is experiencing menstrual cycle every 3 months instead of monthly. I did reiterate the importance of following up with PCP and panel flow machine operator because of her autoimmune disease and hypothyroidism. She has been cleared from psychiatric standpoint to go home Physical Exam Narrative: Awake and alert GCS 15 No signs of myxedema coma Pleasant and cooperative S1, S2 Hemodynamically stable Discharge Data Studies Completed and Pending Completed Studies During Hospitalization Category Date Time Status CT abdomen pelvis wo con [id number] Routine Cat Scan 06/29/23 12:12 [place] thyroid 09229 Routine Ultrasound 07/01/23 16:01 Completed Pending at discharge Category Date Time Status Growth Hormone (GH) Routine Lab 07/01/23 07:27 Received Insulin-Like Growth Factor 1 Routine Lab 07/01/23 07:27 Received Thyroid Peroxidase Antobodies Routine Lab 07/01/23 16:40 Received Thyroid Stimulating Immunoglob Routine Lab 07/01/23 16:40 Received Laboratory Results WBC 3.27 10^3/uL (4.5-13.0) L 07/02/23 04:12 RBC 3.24 10^6/uL (3.85-5.65) L 07/02/23 04:12 Hgb 10.80 g/dL (12.4-14.8) L 07/02/23 04:12 Hct 32.0 % (36-47) L 07/02/23 04:12 MCV 98.8 fl (85-98) H 07/02/23 04:12 MCH 33.3 pg (27-33) H 07/02/23 04:12 MCHC 33.8 g/dL (30-55) 07/02/23 04:12 RDW 12.7 % (12.1-15.1) 07/02/23 04:12 Plt Count 175 10^3/cmm (157-399) 07/02/23 04:12 MPV 11.8 fL (7.4-10.4) H 07/02/23 04:12 Neut % (Auto) 47.5 % 07/02/23 04:12 Lymph % (Auto) 39.1 % 07/02/23 04:12 [place] % (Auto) 7.6 % 07/02/23 04:12 Eos % (Auto) 3.7 % 07/02/23 04:12 Baso % (Auto) 2.1 % 07/02/23 04:12 Neut # (Auto) 1.55 10^3/uL (1.8-8.0) L 07/02/23 04:12 Lymph # (Auto) 1.3 10^3/uL (1.5-6.5) L 07/02/23 04:12 [place] # (Auto) 0.3 10^3/uL (0.2-0.9) 07/02/23 04:12 Eos # (Auto) 0.1 10^3/uL (0.0-0.8) 07/02/23 04:12 Baso # (Auto) 0.1 10^3/uL (0.0-0.1) 07/02/23 04:12 Nucleated RBC % (auto) 0 % 07/02/23 04:12 Nucleated RBCs # 0.0 /100WBC 07/02/23 04:12 Sodium 140 mmol/L (136-145) 07/02/23 04:12 Potassium 3.5 mmol/L (3.5-5.1) 07/02/23 04:12 Chloride 106 mmol/L (98-107) 07/02/23 04:12 Carbon Dioxide 23 mmol/L (22-29) 07/02/23 04:12 Anion Gap 14.5 (5-19) 07/02/23 04:12 BUN 10 mg/dL (6-20) 07/02/23 04:12 Creatinine 1.2 mg/dL (0.5-0.9) H 07/02/23 04:12 GFR Calculation 57.3 mL/min (90-130) L 07/02/23 04:12 Glucose 78 mg/dL (65-115) 07/02/23 04:12 Estimat Average Glucose 91 06/30/23 07:27 Hemoglobin A1c 4.8 % (4.0-6.0) 06/30/23 07:27 Calculated Osmolality 288 mOsm/kg (285-295) 07/02/23 04:12 Calcium 9.4 mg/dL (8.5-10.5) 07/02/23 04:12 Total Bilirubin 0.4 mg/dL (0.15-1.2) 07/02/23 04:12 AST 85 U/L (0-32) H 07/02/23 04:12 ALT 89 U/L (0-33) H 07/02/23 04:12 Alkaline Phosphatase 81 U/L (35-105) 07/02/23 04:12 Total Protein 6.3 g/dL (6.6-8.7) L 07/02/23 04:12 Albumin 4.1 g/dL (3.5-5.2) 07/02/23 04:12 Globulin 2.2 g/dL (1.3-4.6) 07/02/23 04:12 Tumor Marker AFP 7.3 ng/mL (0-8.3) 06/30/23 07:27 TSH 476.90 uIU/mL (0.27-4.20) H 06/30/23 07:27 Free T4 0.10 ng/dL (0.82-1.77) L 07/01/23 07:54 FSH 4.1 mIU/mL 07/01/23 20:02 Luteinizing Hormone 5.1 mIU/mL (0.5-41.7) 07/01/23 20:02 Prolactin 38.78 ng/mL (4.8-23.3) H 07/01/23 20:02 HCG, Qual Negative (Negative) 06/30/23 01:25 Random Cortisol 4.70 ug/dL (2.47-19.5) 07/02/23 04:12 Salicylates < 0.3 mg/dL (3-10) L 06/28/23 01:25 Urine Opiates Screen Negative ng/mL (Negative) 06/28/23 01:25 Acetaminophen < 5.0 ug/mL (10-30) L 06/28/23 01:25 Ur Barbiturates Screen Negative ng/mL (Negative) 06/28/23 01:25 Ur Phencyclidine Scrn Negative ng/mL (Negative) 06/28/23 01:25 Ur Amphetamines Screen Negative ng/mL (Negative) 06/28/23 01:25 U Benzodiazepines Scrn Positive ng/mL (Negative) H 06/28/23 01:25 Urine Cocaine Screen Negative ng/mL (Negative) 06/28/23 01:25 U Marijuana (THC) Screen Negative ng/mL (Negative) 06/28/23 01:25 Ethyl Alcohol < 10 mg/dL (0-10) 06/28/23 01:25 SVEN Screen Positive (NEGATIVE) A 06/29/23 19:06 SVEN Titer 1:40 titer H 06/29/23 19:06 SVEN Pattern Nuclear, homogeneous A 06/29/23 19:06 Adenovirus (PCR) Not detected (NOT DETECT) 07/01/23 11:25 C. pneumoniae DNA (PCR) Not detected (NOT DETECT) 07/01/23 11:25 C.trachomatis RNA (TMA) Not detected (NOT DETECTED) 06/30/23 13:10 Chlamydia/GC Comment See note 06/30/23 13:10 Coronavirus 229E (PCR) Not detected (NOT DETECT) 07/01/23 11:25 Hepatitis A IgM Ab Non-reactive (Nonreactive) 06/29/23 01:25 Hep Bs Antigen Non-reactive (Nonreactive) 06/29/23 01:25 Hep Bs Antibody < 3.5 (11.5-1000) L 06/29/23 01:25 Hep B Core Total Ab Non-reactive (Nonreactive) 06/29/23 01:25 Hepatitis C Antibody Non-reactive (Nonreactive) 06/29/23 01:25 HIV 1&2 Ab & HIV 1 Ag Non-reactive (Non-Reactiv) 06/29/23 01:25 HIV 1&2 Antibody Non-reactive (Non-Reactiv) 06/29/23 01:25 Human Metapneumovir PCR Not detected (NOT DETECT) 07/01/23 11:25 Influenza A (H1) PCR Not detected (NOT DETECT) 07/01/23 11:25 Influ A (H1/09) PCR Not detected (NOT DETECT) 07/01/23 11:25 Influenza A (H3) PCR Not detected (NOT DETECT) 07/01/23 11:25 Influenza Type A (PCR) Not detected (NOT DETECT) 07/01/23 11:25 Influenza Type B (PCR) Not detected (NOT DETECT) 07/01/23 11:25 M. pneumoniae (PCR) Not detected (NOT DETECT) 07/01/23 11:25 N.gonorrhoeae RNA (TMA) Not detected (NOT DETECTED) 06/30/23 13:10 Parainfluenza 1 (PCR) Not detected (NOT DETECT) 07/01/23 11:25 Parainfluenza 2 (PCR) Not detected (NOT DETECT) 07/01/23 11:25 Parainfluenza 3 (PCR) Not detected (NOT DETECT) 07/01/23 11:25 Parainfluenza 4 (PCR) Not detected (NOT DETECT) 07/01/23 11:25 RSV Type A (PCR) Not detected (NOT DETECT) 07/01/23 11:25 RSV Type B (PCR) Not detected (NOT DETECT) 07/01/23 11:25 Entero/Rhino (PCR) Not detected (NOT DETECT) 07/01/23 11:25 SARS-CoV-2 (PCR) Not detected (NOT DETECT) 07/01/23 11:25 Vitals Last Vital Signs Temp 98.2 F 07/03/23 07:41 Pulse 57 L 07/03/23 07:41 Resp 17 07/03/23 07:41 BP 107/73 07/03/23 07:41 Pulse Ox 98 07/03/23 07:41 O2 Del Method Room Air 07/03/23 07:41 Discharge Plan Discharge Patient Disposition: Home Condition: Stable Prescriptions: New methylprednisolone [Medrol (Jonatan)] 4 mg tablets,dose pack See Rx Instructions .ROUTE .COMPLEX Qty: 21 0RF Rx Instructions: orally per package directions doxycycline monohydrate 100 mg Tablet 100 mg PO BID Qty: 6 0RF levothyroxine 100 mcg capsule 100 mcg PO DAILY Qty: 90 3RF Continued fluoxetine 20 mg Capsule 20 mg PO DAILY 30 Days Qty: 30 4RF Discharge Orders: Discharge Order (Routine); Ordered 07/03/23 Ordered By: Kena Joe Referrals: [facility] [Outside] - 07/05/23 10:00 am (Initial appointment with Travon Velez on 07/05/23 @ 10:00 am.) Serene Solo MD [Physician] - 07/05/23 9:15 am Xiang Iverson MD [Physician] - 2 weeks Patient Instructions: Opioid Safety Discharge Attestations Time Spent in Discharge Care*: greater than 30 min Quality Metrics Clinical Quality Measures [ No reported AMI, CVA or VTE this stay] Coding Level of Care Code Acute Code for Chg Fwd Diagnoses Depression F32.A Thyroid function study abnormality R94.6 Abnormal LFTs R79.89 Proctitis K62.89 BAL (acute kidney injury) N17.9
[2023-07-03] MEDS: doxycycline 100 mg Tablet PO (10:22)
[2023-07-03] MEDS: fluoxetine 20 mg Capsule 40 MG PO (10:22)
--- NOTE | 2023-07-03 10:51 | PC.NURSE ---
Called in Prozac to [facility] in [place] at this time.
--- NOTE | 2023-07-05 12:17 | PC.NURSE ---
Called and updated patient's Harsha patient's step-dad that Dr. Rivka gunderson called and said that Jayne has an appointment on September 15. Patient's step dad to call the office to see if she can get her in sooner. Patient's step dad stated that he did not know patient had an appointment this morning as he was not here on discharge.
[2023-07-05 15:01] LABS: Anti-Double Strand DNA AB 1 IU/mL; Myeloperoxidase Antibody <1.0 AI; Smith Antibody <1.0 NEG AI (<1.0 NEG)
[2023-07-05 15:40] LABS: Thyroid Peroxidase Antobodies 383 IU/mL (<9)
[2023-07-07 12:00] LABS: IGF1 LC/MS 60 ng/mL (83-456)
[2023-07-08 04:00] LABS: ANCA Screen NEGATIVE (NEGATIVE)
== END 2023-07-03 11:15 | disposition home or self-care (01) | DRG 885 ==
LOC: ER 01:07 → NP 06:45 → MEDSURG 07-01 10:48
PROVIDERS: Internal Medicine; Admitting Provider Psychiatry & Neurology Psychiatry; Emergency Provider Emergency Medicine; PCP Pediatrics; Visit Provider Psychiatry & Neurology Psychiatry
DX: F33.9 Major depressive disorder, recurrent, unspecified (principal); R45.851 Suicidal ideations; N17.9 Acute kidney failure, unspecified; R74.8 Abnormal levels of other serum enzymes; I95.9 Hypotension, unspecified; K62.89 Other specified diseases of anus and rectum; F43.10 Post-traumatic stress disorder, unspecified; E03.9 Hypothyroidism, unspecified; E86.0 Dehydration; Z11.52 Encounter for screening for COVID-19
CPT/HCPCS: 36415; 74176; 76536; 80053; 80306; 80307; 82105; 82533; 83001; 83002; 83003; 83036; 83516; 84146; 84305; 84439; 84443; 84445; 84703; 85025; 86021; 86036; 86038; 86225; 86235; 86376; 86705; 86706; 86709; 86803; 87340; 87486; 87491; 87581; 87591; 87633; 87806; 96372; 97150; 97165; 99285; J0696; J7030; Q0144

== ENCOUNTER → 2023-09-16 12:34 | Outpatient (BNVA) | payer SELFPAY | PROVIDERS: PCP Family Medicine; Visit Provider Internal Medicine | DX: E03.9 Hypothyroidism, unspecified (principal); E03.4 Atrophy of thyroid (acquired) | CPT/HCPCS: 84439; 84443 ==

== ENCOUNTER → 2023-11-18 11:44 | Outpatient (BNVA) | payer SELFPAY | PROVIDERS: PCP Family Medicine; Visit Provider Internal Medicine | DX: E03.9 Hypothyroidism, unspecified (principal); E03.4 Atrophy of thyroid (acquired) | CPT/HCPCS: 36415; 84439; 84443 ==

== ENCOUNTER 2023-12-26 13:56 | Emergency (ER) | payer SELFPAY ==
[2023-12-26 14:15] VITALS: BP 108/55; PULSE 86; RESP 17; TEMP 36.6; O2SAT 100; BMI 21.2
[2023-12-26 15:06] LABS: HCG, Serum Qual Positive (Negative)
--- NOTE | 2023-12-26 15:11 | ED_ITS ---
HPI - General Adult General: Chief complaint: General Medical Stated complaint: pt needs test Time Seen by Provider: 12/26/23 14:31 History of Present Illness: 23-year-old female comes in today for co ncerns of . Patient has not had a period in over 1 month. Patient did a home test today and it was positive. Patient has a history of Johann's and hypothyroidism. Patient was concerned and wanted to verify the with blood test. Patient d enies any chest pain or difficulty breathing. Patient reports some nausea and morning vomiting. Review of Systems General: Reports: 10 or more systems reviewed and unremarkable except in HPI and below PFSH ED PFSH: Medical History Abnormal LFTs PTSD (post-traumatic stress disorder) Major depressive disorder, recurrent BAL (acute kidney injury) Thyroid function study abnormality Proctitis Depression UTI (urinary tract infection) Pyelonephritis of left kidney Social History Smoking and tobacco/nicotine status: never used tobacco/nicotine Alcohol intake: never Substance/Drug Use: never Adopted: No service: No Current occupational exposures/hazards: No Current gender identity: Female Female Reproductive History: Para: 0 Physical Exam Const: COMMON NORMALS: alert HENMT: COMMON NORMALS: normocephalic HEAD & SCALP: normocephalic Neck/C-Spine: COMMON NORMALS: full ROM Resp: COMMON NORMALS: normal respiratory effort Cardio: COMMON NORMALS: regular rate RATE: regular rate GI: COMMON NORMALS: Soft to palpation and non-tender PALPATION: Yes Soft to palpation Back/Pelvis: COMMON NORMALS: thoracic and lumbar spine normal to inspection Extremity: COMMON NORMALS: full ROM Neuro: SENSORIUM/ORIENTATION: Yes alert Skin: COMMON NORMALS: turgor normal GENERAL SKIN EXAM: turgor normal Course Vital Signs: Vital signs: Vital Signs Temperature 97.9 F 12/26/23 14:15 Pulse Rate 86 12/26/23 14:15 Respiratory Rate 17 12/26/23 14:15 Blood Pressure 108/55 12/26/23 14:15 Pulse Oximetry 100 12/26/23 14:15 Oxygen Delivery Me thod Room Air 12/26/23 14:15 MDM - General Adult Medical Decision Making 23-year-old female comes in today for complaints of nausea and no period x 1 month. Patient did test positive at home for . Patient wanted to verify the test result. Differential diagnosis includes amenorrhea, , dehydration. Serum test was positive. Reviewed exam with patient with recommendations for treatment and follow-up. Discussed the need to avoid alcohol, tobacco and marijuana smoking, and any other drug use. Patient reported understanding agreed to plan. Lab Data Laboratory Results HCG, Qual Positive (Negative) H 12/26/23 14:45 No radiology studies performed this visit Discharge Plan Discharge Patient Disposition: Home Clinical Impression: Amenorrhea, unspecified Qualifiers: Weeks of gestation: less than 8 weeks Qualified Code(s): Z3A.01 - Less than 8 weeks gestation of Condition: Stable Prescriptions: No Action fluoxetine 40 mg capsule 40 mg PO DAILY 90 Days Qty: 90 4RF levothyroxine 100 mcg capsule 100 mcg PO DAILY Qty: 90 3RF levothyroxine 100 mcg tablet 100 mcg PO DAILY Qty: 90 0RF Discharge Orders: Discharge ED (Routine); Ordered 12/26/23 Ordered By: Tone Josue Referrals: Xiang Iverson MD [Primary Care Provider] - Patient Instructions: (ED) Activity Restrictions/Additional Instructions: Thank you for choosing [facility] for your healthcare needs today. Please realize that you were seen in the emergency department and that we are providing you with an emergency medical screening exam and this may not be a complete and all exclusive of all testing and/or medical workup we may need to determine your element or severity of your illness. It is very important that you follow-up as instructed with your primary care provider or specialist for the additional evaluation and to discuss your medical treatment plan. You may return to the emergency department should you have concerns or if your condition changes or worsens in any way. 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
== END 2023-12-26 15:31 | disposition home or self-care (01) ==
PROVIDERS: Emergency Provider Nurse Practitioner Family; PCP Family Medicine
DX: O26.891 Other specified pregnancy related conditions, first trimester (principal); N91.2 Amenorrhea, unspecified; Z3A.01 Less than 8 weeks gestation of pregnancy
CPT/HCPCS: 36415; 84703; 99283

== ENCOUNTER → 2024-01-06 11:14 | Outpatient (BNVA) | payer SELFPAY | PROVIDERS: PCP Family Medicine; Visit Provider Nurse Practitioner Women's Health | DX: Z34.90 Encounter for supervision of normal pregnancy, unspecified, unspecified trimester (principal); Z3A.00 Weeks of gestation of pregnancy not specified; N92.6 Irregular menstruation, unspecified | CPT/HCPCS: 81025; 84439; 84443; 84481; 84702; 86850; 86900 ==

== ENCOUNTER → 2024-02-03 13:37 | Outpatient (BNVA) | payer SELFPAY | PROVIDERS: PCP Family Medicine; Visit Provider Nurse Practitioner Women's Health | DX: Z36.87 Encounter for antenatal screening for uncertain dates (principal); Z3A.11 11 weeks gestation of pregnancy | CPT/HCPCS: 76801 ==

== ENCOUNTER → 2024-02-21 12:05 | Outpatient (BNVA) | payer SELFPAY | PROVIDERS: PCP Family Medicine; Visit Provider Internal Medicine | DX: E03.9 Hypothyroidism, unspecified (principal) | CPT/HCPCS: 84439; 84443 ==

== ENCOUNTER 2024-03-02 12:31 | Emergency (ER) | payer BC, MEDICAID, SELFPAY ==
[2024-03-02 12:43] VITALS: BP 84/57; PULSE 80; RESP 16; TEMP 36.7; O2SAT 99; BMI 21.8
[2024-03-02 13:05] VITALS: BP 92/63; PULSE 71; RESP 14; O2SAT 100
--- NOTE | 2024-03-02 13:27 | ED_ITS ---
HPI - Extremity Problem General: Chief complaint: Extremity Injury, Lower Stated complaint: Right Hip/Leg pain Time Seen by Provider: 03/02/24 13:04 Source: patient Mode of arrival: ambulatory Limitations: no limitations History of Present Illness: Patient is a 23-year-old female present to the emergency department complaining of right lower back pain beginning over the past week. She is currently 15 weeks , has an appointment with OB next week. States she works at [employer] and has been lifting heavy, but does not report any 1 single incident where she felt the pain. She states that is radiating down her right lateral leg, denies history of sciatica. She has been taken Tylenol, has not used ice/heat or other [id number]-ptb-idfljcy remedies. No fevers, bowel or bladder incontinence, or other symptoms at this time MD Complaint: other (back pain) Onset (ago): day(s) Pain Consistency: constant Exacerbating factors: range of motion Associated symptoms: Deny chest pain, fever(s) or rash Related Data Home Medications Medication Instructions Recorded Confirmed ibuprofen 200 mg tablet (Advil) 400 mg PO Q6H PRN Pain 03/02/24 03/02/24 Previous Rx's Medication Instructions Recorded levothyroxine 125 mcg tablet 125 mcg PO DAILY #60 tabs 01/11/24 Allergies Allergy/AdvReac Type Severity Reaction Status Date / Time No Known Allergies Allergy Verified 02/21/24 11:26 Review of Systems General: Reports: 10 or more systems reviewed and unremarkable except in HPI and below Const: Denies: fever(s) or chills Card: Denies: chest pain Resp: Denies: dyspnea or productive cough GI: Denies: abdominal pain, nausea, vomiting or diarrhea : Denies: flank pain Musc: Reports: back pain and extremity pain; Denies: neck pain, extremity swelling, joint pain, joint swelling, joint redness, joint warmth, limited range of motion or muscle weakness Skin/Breast: Denies: rash Neuro: Denies: headache(s), numbness in extremities or weakness in extremities PFS ED PFSH: Medical History Abnormal LFTs PTSD (post-traumatic stress disorder) Major depressive disorder, recurrent BAL (acute kidney injury) Thyroid function study abnormality Proctitis Depression UTI (urinary tract infection) Pyelonephritis of left kidney Family History Grandfather Diabetes Mother Thyroid disease Grandmother Hypertension Denies family history of Colon cancer Ovarian cancer Prostate cancer Heart disease Breast cancer Uterine cancer Stroke Social History Smoking and tobacco/nicotine status: never used tobacco/nicotine Female Reproductive History: Para: 0 Physical Exam Const: COMMON NORMALS: no acute distress, patient oriented x3, no limitations, healthy appearing, alert and well nourished HENMT: COMMON NORMALS: normocephalic and atraumatic HEAD & SCALP: normocephalic and atraumatic Neck/C-Spine: COMMON NORMALS: full ROM, supple and no meningeal signs Resp: COMMON NORMALS: normal respiratory effort, No use of accessory muscles and clear to auscultation bilaterally AUSCULTATION: clear to auscultation bilaterally Cardio: COMMON NORMALS: regular rate and regular rhythm RATE: regular rate RHYTHM: regular rhythm Back/Pelvis: OTHER: No significant reproducible tenderness to palpation of the parathoracic or paralumbar muscles. Pain with range of motion, worse with flexion and extension. Positive straight leg raise on the right Extremity: COMMON NORMALS: normal to inspection, full ROM, capillary refill normal, no joint enlargement and no clubbing, cyanosis or edema Neuro: COMMON NORMALS: patient oriented x3, moves all extremities, no focal motor deficits, no sensory deficits noted and deep tendon reflexes 2+ bilaterally SENSORIUM/ORIENTATION: Yes alert MENINGEAL SIGNS: Yes no meningeal signs Skin: COMMON NORMALS: no rashes or lesions noted GENERAL SKIN EXAM: no rashes or lesions noted Course Vital Signs: Vital signs: Vital Signs Temperature 98.0 F 03/02/24 12:43 Pulse Rate 71 03/02/24 13:05 Respiratory Rate 14 03/02/24 13:05 Blood Pressure 92/63 03/02/24 13:05 Pulse Oximetry 100 03/02/24 13:05 Oxygen Delivery Me thod Room Air 03/02/24 13:05 MDM - Extremity (Nontraumatic) Medical Decision Making Patient 15 weeks complaining of right lower back pain radiating down the right leg for the past 5 days. No red flag back symptoms were reported. Pain was noted to be worsened with movement and she did have a positive straight leg raise on the right, suspicion at this time is for sciatic nerve involvement. She has been only been taken Tylenol, she is to continue taking this and muscle relaxers not warranted at this time due to her status. Did encourage her to begin alternating ice and heat of the right lower back and to rest and recover, specifically work note will be provided so that she is not doing any heavy lifting or bending. She has follow-up appointment with OB next week which she will keep. No radiology studies performed this visit Discharge Plan Discharge Patient Disposition: Home Clinical Impression: Back pain in Condition: Stable Prescriptions: No Action levothyroxine 125 mcg tablet 125 mcg PO DAILY Qty: 60 0RF ibuprofen [Advil] 200 mg Tablet 400 mg PO Q6H PRN (Reason: Pain) Discharge Orders: Discharge ED (Routine); Ordered 03/02/24 Ordered By: Elmo Coelho Referrals: Xiang Iverson MD [Primary Care Provider] - Discharge Diet: Usual diet Discharge Activity: Limit activity as instructed Patient Instructions: Low Back Strain (ED), Pain Management Activity Restrictions/Additional Instructions: Tylenol for any pain. Avoid any strenuous exercising or heavy lifting. Follow- up with OB next week as planned. Work note provided. Return with any new or worsening. 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
[2024-03-02 13:29] VITALS: BP 92/63; PULSE 81; O2SAT 100
== END 2024-03-02 13:34 | disposition home or self-care (01) ==
PROVIDERS: Emergency Provider Physician Assistant; PCP Family Medicine
DX: O26.892 Other specified pregnancy related conditions, second trimester (principal); M54.50 Low back pain, unspecified; Z3A.15 15 weeks gestation of pregnancy
CPT/HCPCS: 99282

== ENCOUNTER → 2024-03-07 09:21 | Outpatient (BNVA) | payer BC, MEDICAID, SELFPAY | PROVIDERS: PCP Family Medicine; Visit Provider Nurse Practitioner Women's Health | DX: Z34.90 Encounter for supervision of normal pregnancy, unspecified, unspecified trimester (principal) | CPT/HCPCS: 80307; 81000; 84439; 84443; 84481; 85025; 86592; 86762; 86787; 86803; 86850; 86900; 87086; 87340; 87491; 87591; 87806; 88175 ==

== ENCOUNTER → 2024-04-04 09:34 | Outpatient (BNVA) | payer BC, MEDICAID, SELFPAY | PROVIDERS: PCP Family Medicine; Visit Provider Obstetrics & Gynecology | DX: Z34.92 Encounter for supervision of normal pregnancy, unspecified, second trimester (principal); Z3A.19 19 weeks gestation of pregnancy | CPT/HCPCS: 76805 ==

== ENCOUNTER → 2024-05-01 08:38 | Outpatient (BNVA) | payer BC, MEDICAID, SELFPAY | PROVIDERS: PCP Family Medicine; Visit Provider Nurse Practitioner Women's Health | DX: Z34.92 Encounter for supervision of normal pregnancy, unspecified, second trimester (principal); Z3A.16 16 weeks gestation of pregnancy; E06.3 Autoimmune thyroiditis | CPT/HCPCS: 84315; 84443 ==

== ENCOUNTER 2024-06-01 09:15 | Outpatient (CLI) | payer BC, MEDICAID, SELFPAY ==
[2024-06-01] VITALS (9 sets, daily range): BP systolic 92–114; BP diastolic 51–60; PULSE 78–110; RESP 18; BMI 21.2
[2024-06-01] MEDS: sodium chloride 0.9% 500 ML 999 ML IV (10:09)
[2024-06-01] MEDS: ondansetron 2 mg/ML SDV 2 mL 4 MG IVP (10:09)
[2024-06-01 10:11] LABS: Hematocrit 31.9 % (36-47); Mean Corpuscular HGB Conc 31.3 g/dL (30-55); Mean Corpuscular Hemoglobin 27.6 pg (27-33); Mean Corpuscular Volume 88.1 fl (85-98); Mean Platelet Volume 9.6 fL (7.4-10.4); Platelet Count 332 10^3/cmm (157-399); Red Blood Count 3.62 10^6/uL (3.85-5.65); Red Cell Distribution Width 12.7 % (12.1-15.1)
[2024-06-01 11:01] LABS: Absolute Neutrophil 14.1 10^3/cmm (1.4-6.5); Absolute Segmented Neutrophil 13.7 10/cmm (1.6-7.1); Band Neutrophils Absolute 0.5 10^3/cmm (0.0-1.2); Eosinophils 0 %; Lymphocytes 4 %; Lymphocytes Absolute 0.8 10^3/cmm (1.2-3.4); Monocytes Absolute 0.3 10^3/cmm (0.1-0.6); Platelet Estimate Normal (Normal); Segmented Neutrophils 90 %; Total Cells Counted 100 (0-100)
== END 2024-06-01 11:35 | disposition home or self-care (01) ==
LOC: OPOB 09:17 → OBGYN 09:19
PROVIDERS: Obstetrics & Gynecology; PCP Family Medicine; Visit Provider Obstetrics & Gynecology
DX: O21.8 Other vomiting complicating pregnancy (principal); Z3A.00 Weeks of gestation of pregnancy not specified; R19.7 Diarrhea, unspecified
CPT/HCPCS: 36415; 85007; 85027; 96374; 99211; J2405; J7040

== ENCOUNTER → 2024-06-28 11:42 | Outpatient (BNVA) | payer BC, MEDICAID, SELFPAY | PROVIDERS: PCP Family Medicine; Visit Provider Internal Medicine | DX: E06.3 Autoimmune thyroiditis (principal); E03.4 Atrophy of thyroid (acquired) | CPT/HCPCS: 36415; 84439; 84443 ==

== ENCOUNTER → 2024-06-30 08:27 | Outpatient (BNVA) | payer BC, MEDICAID, SELFPAY | PROVIDERS: PCP Family Medicine; Visit Provider Obstetrics & Gynecology | DX: Z34.90 Encounter for supervision of normal pregnancy, unspecified, unspecified trimester (principal) | CPT/HCPCS: 82950; 84315; 85025 ==

== ENCOUNTER → 2024-07-12 09:07 | Outpatient (BNVA) | payer BC, MEDICAID, SELFPAY | PROVIDERS: PCP Family Medicine; Visit Provider Obstetrics & Gynecology | DX: Z34.93 Encounter for supervision of normal pregnancy, unspecified, third trimester (principal) | CPT/HCPCS: 76816 ==

== ENCOUNTER → 2024-07-17 14:16 | Outpatient (BNVA) | payer BC, MEDICAID, SELFPAY | PROVIDERS: PCP Family Medicine; Visit Provider Nurse Practitioner Women's Health | DX: Z34.90 Encounter for supervision of normal pregnancy, unspecified, unspecified trimester (principal) | CPT/HCPCS: 84315 ==

== ENCOUNTER 2024-07-22 11:35 | Outpatient (CLI) | payer BC, MEDICAID, SELFPAY ==
[2024-07-22] VITALS (8 sets, daily range): BP systolic 97–114; BP diastolic 56–64; PULSE 79–126; RESP 17; TEMP 35.9; O2SAT 98; BMI 23.2
[2024-07-22 12:03] LABS: Bilirubin Urine Negative (Negative); Blood Urine Negative (Negative); Glucose Urine UA Negative (Normal); Ketones Urine Negative (Negative); Leukocyte Esterase Urine 3+ (Negative); Nitrate Urine Negative (Negative); Protein Urine Negative (Negative); Specific Gravity, Urine 1.012 (1.005-1.030); Urine Appearance Cloudy (CLEAR); Urine Color Yellow (Yellow)
[2024-07-22 12:08] LABS: Bacteria Urine 1+ /hpf; Hyaline Casts Urine 1.65 /lpf; RBC Urine 0-2 /hpf (0-2); Squamous Epithelial Cell Urine 21-50 /hpf (0-5); WBC Urine >100 /hpf (0-5)
== END 2024-07-22 14:30 | disposition home or self-care (01) ==
LOC: OPOB 11:38 → OBGYN 11:38
PROVIDERS: PCP Family Medicine; Visit Provider Obstetrics & Gynecology
DX: O26.899 Other specified pregnancy related conditions, unspecified trimester (principal); Z3A.00 Weeks of gestation of pregnancy not specified; R10.9 Unspecified abdominal pain
CPT/HCPCS: 59025; 81001; 99211

== ENCOUNTER → 2024-07-24 08:59 | Outpatient (BNVA) | payer BC, MEDICAID, SELFPAY | PROVIDERS: PCP Family Medicine; Visit Provider Obstetrics & Gynecology | DX: Z34.90 Encounter for supervision of normal pregnancy, unspecified, unspecified trimester (principal) | CPT/HCPCS: 84315; 87081 ==

== ENCOUNTER → 2024-07-31 07:58 | Outpatient (BNVA) | payer BC, MEDICAID, SELFPAY | PROVIDERS: PCP Family Medicine; Visit Provider Obstetrics & Gynecology | DX: Z34.90 Encounter for supervision of normal pregnancy, unspecified, unspecified trimester (principal) | CPT/HCPCS: 84315 ==

== ENCOUNTER 2024-08-06 02:59 | Outpatient (CLI) | payer BC, MEDICAID, SELFPAY ==
[2024-08-06 03:27] VITALS: RESP 18
[2024-08-06 03:41] VITALS: BMI 23.4
[2024-08-06 03:41] LABS: Bilirubin Urine Negative (Negative); Blood Urine Negative (Negative); Glucose Urine UA Negative (Normal); Ketones Urine Negative (Negative); Leukocyte Esterase Urine 1+ (Negative); Nitrate Urine Negative (Negative); Protein Urine Trace (Negative); Specific Gravity, Urine 1.018 (1.005-1.030); Urine Appearance Clear (CLEAR); Urine Color Yellow (Yellow)
[2024-08-06 03:49] LABS: Bacteria Urine TRACE /hpf; RBC Urine 0-4 /hpf (0-2); Squamous Epithelial Cell Urine 0-4 /hpf (0-5); WBC Urine 0-4 /hpf (0-5)
[2024-08-06] MEDS: nitrofurantoin SR (BID) 100 mg Capsule PO (04:21)
[2024-08-06 04:30] VITALS: BP 106/64; PULSE 98; RESP 18
== END 2024-08-06 04:38 | disposition home or self-care (01) ==
LOC: OPOB 03:02 → OBGYN 03:03
PROVIDERS: PCP Family Medicine; Visit Provider Obstetrics & Gynecology
DX: O26.899 Other specified pregnancy related conditions, unspecified trimester (principal); Z3A.00 Weeks of gestation of pregnancy not specified; R10.9 Unspecified abdominal pain; M54.9 Dorsalgia, unspecified
CPT/HCPCS: 59025; 81001; 87086; 99211

== ENCOUNTER → 2024-08-14 09:16 | Outpatient (BNVA) | payer BC, MEDICAID, SELFPAY | PROVIDERS: PCP Family Medicine; Visit Provider Obstetrics & Gynecology | DX: Z34.90 Encounter for supervision of normal pregnancy, unspecified, unspecified trimester (principal) | CPT/HCPCS: 84315 ==

== ENCOUNTER 2024-08-21 03:39 | Outpatient (CLI) | payer BC, MEDICAID, SELFPAY ==
[2024-08-21 03:46] VITALS: BMI 24.0
[2024-08-21 03:59] VITALS: BP 118/71; PULSE 94
[2024-08-21 04:15] VITALS: BP 98/53; PULSE 70
[2024-08-21 05:56] VITALS: BP 101/57; PULSE 82
[2024-08-21 07:22] VITALS: BP 116/60; PULSE 103
== END 2024-08-21 08:54 | disposition home or self-care (01) ==
LOC: OPOB 03:41 → OBGYN 03:42
PROVIDERS: PCP Family Medicine; Visit Provider Obstetrics & Gynecology
DX: O26.899 Other specified pregnancy related conditions, unspecified trimester (principal); Z3A.00 Weeks of gestation of pregnancy not specified
CPT/HCPCS: 59025; 99211

== ENCOUNTER 2024-08-23 19:17 | Inpatient (IN) | payer BC, MEDICAID, SELFPAY ==
[2024-08-23] VITALS (8 sets, daily range): BP systolic 107–129; BP diastolic 56–72; PULSE 80–98; BMI 24.7
--- NOTE | 2024-08-23 20:50 | PM.OBGYHP ---
Providers/Chief Complaint Admitting Physician: Robert Nguyen MD Primary SAILBOAT CAPTAIN: Robert Nguyen MD Primary Care Provider: Xiang Iverson MD Chief Complaint: IOL HPI SAILBOAT CAPTAIN History of Present Illness Jayne Momin is a 23 year old female G1 EDC August 20, 2024 At 40 w 3 d No complications Admitted for induction of labor + mild uterine contractions + movements No bleeding, fluid leakage Present Details : 1 Para: 0 Labs Rubella: Immune RPR: Negative GBS: Negative Medications/Allergies Home Medications ?Medication ?Instructions ?Recorded ?Confirmed ?Last Taken ?Type levothyroxine 125 mcg tablet 125 mcg PO DAILY #90 tabs 04/12/24 08/23/24 08/23/24 Rx [id number]-[id number]-FA 1 mg 1 tab PO DAILY 08/21/24 08/23/24 08/23/24 History tablet Allergies Allergy/AdvReac Type Severity Reaction Status Date / Time No Known Allergies Allergy Verified 08/23/24 20:50 PFSH SAILBOAT CAPTAIN PFSH: Medical History Abnormal LFTs PTSD (post-traumatic stress disorder) Major depressive disorder, recurrent BAL (acute kidney injury) Thyroid function study abnormality Proctitis Depression UTI (urinary tract infection) Pyelonephritis of left kidney Family History Grandfather Diabetes Mother Thyroid disease Grandmother Hypertension Denies family history of Colon cancer Ovarian cancer Prostate cancer Heart disease Breast cancer Uterine cancer Stroke Social History Smoking and tobacco/nicotine status: never used tobacco/nicotine History History History 1 Term 0 Miscarriages/Ectopic Living Children Care PRIYA Calculator Estimated Delivery Date Method Current WG Current Estimate 08/20/24 Ultrasound #1 40w 4d Other Estimates 09/02/24 LMP (Uncertain) 38w 5d Specific Issues/Plans [employer] DISEASE: TSH on 02/21/24 148.5 and T3 0.41 , followed by Dr. Solo, was not consistently taking levothyroxine, on 125mcg daily, states she's now taking it consistently, most recent draw on 06/28/24 2.49 WNL DEPRESSION: doing well BACK PAIN IN : admits to sciatic like pain, it has gotten better since ER visit on 02/20 ANEMIA: HGB 8.6 on 06/30/24, instructed to start iron supplements 1-2x daily Vitals/I&O/Wt Last Vital Signs Pulse 74 08/24/24 03:03 BP 112/64 08/24/24 03:00 Pulse Ox 100 08/24/24 03:03 O2 Del Method Room Air 08/23/24 19:30 08/23/24 08/23/24 08/24/24 14:59 22:59 06:59 Intake Total 1.15 / . 1260.417 / 1261.567 Balance 1.15 . 1260.417 / 1261.567 Weight last 48 hrs Weight 122 lb 8 oz Physical Exam Narrative: Weight 122 lbs; 4?11? VS normal General comfortable, awake, alert Lungs: clear Cor: RRR Abd: nontender FH 36 cm, cephalic Cervix: 3 cm / 90 / -1 Ext: no edema External monitor: heart tracing good variability, + accelerations Urinary Catheter Management: Abreu Latex: Cath Placed During This Visit: yes Urinary Catheter Date of Insertion: 08/24/24 Urinary Catheter Time of Insertion: 01:45 Data 08/23/24 19:30 Results Labs OB ([facility]): Obstetrics US 07/12/24 Blood Type A Positive 08/23/24 Antibody Screen Negative 08/23/24 Hct 32.2 % (36-47) L 08/23/24 Hgb 9.50 g/dL (11.27-16.99) L 08/23/24 Rho(D) Type Rh positive 08/23/24 Plt Count 229 10^3/cmm (157-399) 08/23/24 Hep Bs Antigen Non-reactive (Nonreactive) 03/07/24 Hep B Core Total Ab Non-reactive (Nonreactive) 06/29/23 Hep Bs Antibody < 3.5 (11.5-1000) L 06/29/23 Hepatitis C Antibody Non-reactive (Nonreactive) 03/07/24 Rubella IgG Antibody > 500.0 IU/mL (0.0-10.0) H 03/07/24 RPR Nonreactive (Nonreactive) 03/07/24 HIV 1&2 Ab & HIV 1 Ag Non-reactive (Non-Reactiv) 03/07/24 TSH 2.49 uIU/mL (0.27-4.20) 06/28/24 Free T4 1.09 ng/dL (0.82-1.77) 06/28/24 C.trachomatis RNA (TMA) Not detected (NOT DETECTED) 03/07/24 N.gonorrhoeae RNA (TMA) Not detected (NOT DETECTED) 03/07/24 T. vaginalis Amp RNA Not detected (NOT DETECTED) 03/07/24 Chlamydia/GC Comment See note 03/07/24 Glucose 1 Hr 50 gm 118 mg/dL (85-140) 06/30/24 Hemoglobin A1c 4.8 % (4.0-6.0) 06/30/23 VZV IgG Antibody 2.00 S/CO 03/07/24 FSH 4.1 mIU/mL 07/01/23 Ser , Semi-Qnt 843218.00 mIU/mL 01/06/24 HCG, Qual Positive (Negative) H 01/06/24 Urine Opiates Screen Negative ng/mL (Negative) 08/23/24 Ur Barbiturates Screen Negative ng/mL (Negative) 08/23/24 Ur Phencyclidine Scrn Negative ng/mL (Negative) 08/23/24 Ur Amphetamines Screen Negative ng/mL (Negative) 08/23/24 U Benzodiazepines Scrn Negative ng/mL (Negative) 08/23/24 Urine Cocaine Screen Negative ng/mL (Negative) 08/23/24 U Marijuana (THC) Screen Positive ng/mL (Negative) H 08/23/24 Micro Urine Specimen 08/06/24 Pap Smear Interpret See note A 03/07/24 Prolactin 38.78 ng/mL (4.8-23.3) H 07/01/23 A&P Assessment and plan (1) : 40 w 3 d Fetus reassuring Admit for induction of labor Plan Pitocin per protocol Labor management Qualifiers: Weeks of gestation: 16 weeks Qualified Code(s): Z3A.16 - 16 weeks gestation of PDMP PDMP Reviewed: Not Reviewed Attestations Medical Necessity Statement*: patient at 40 w 3d, admitted for induction of labor Coding Level of Care Code Acute Code for Chg Fwd Diagnoses 16 weeks gestation of Z3A.16 Weeks of gestation: 16 weeks Time Spent (min) 60
[2024-08-23 20:51] LABS: Basophils % 0.3 %; Eosinophils # 0.1 10^3/uL (0.0-0.8); Eosinophils % 0.4 %; Hematocrit 32.2 % (36-47); Lymphocytes # 1.4 10^3/uL (0.8-4.8); Lymphocytes % 12.7 %; Mean Corpuscular HGB Conc 29.5 g/dL (30-55); Mean Corpuscular Hemoglobin 24.5 pg (27-33); Mean Corpuscular Volume 83.2 fl (85-98); Mean Platelet Volume 12.4 fL (7.4-10.4); Monocytes # 0.7 10^3/uL (0.2-0.9); Monocytes % 6.3 %; Neutrophils # 8.88 10^3/uL (1.8-7.7); Neutrophils % 79.8 %; Nucleated Red Blood Cells % 0 %; Platelet Count 229 10^3/cmm (157-399); Red Blood Count 3.87 10^6/uL (3.85-5.65); White Blood Count 11.14 10^3/uL (3.29-11.43)
[2024-08-23 20:56] LABS: Amphetamines Screen Urine Negative (Negative); Barbiturates Screen Urine Negative (Negative); Benzodiazepines Screen Urine Negative (Negative); Cocaine Screen Urine Negative (Negative); Opiate Screen Urine Negative (Negative); PCP Screen Urine Negative (Negative); THC Screen Urine Positive (Negative)
[2024-08-23] MEDS: dextrose 5%-lactated ringers 1,000 ML 125 ML IV (21:50)
[2024-08-23] MEDS: oxytocin 30 UNIT/500 ML BAG IV (21:51)
[2024-08-23] MEDS: sodium chloride 0.9% 1,000 ML 999 ML IV (23:55)
[2024-08-24] VITALS (67 sets, daily range): BP systolic 86–158; BP diastolic 54–80; PULSE 48–129; RESP 16; TEMP 36.6–36.7; O2SAT 79–100
[2024-08-24] MEDS: ROPivacaine syringe 100 MG/50 ML SYRINGE 10 MG EPIDURAL ×2 (01:27→05:34)
--- NOTE | 2024-08-24 01:31 | P.ANESASSM_ITS ---
Pre-Anesthetic Assessment Height/Weight: Height 1.5 m Weight 55.565 kg Pulse BP Pulse Ox O2 Del Method 73 117/65 100 Room Air 08/24/24 01:29 08/24/24 01:29 08/24/24 01:28 08/23/24 19:30 Preop Diagnosis: Intrauterine labor epidural Familial anesthetic complications: none Was Beta Jacky taken within 24 hours: N/A Was Clonidine taken within 24 hours: N/A Social No alcohol and No tobacco Exam alert, oriented x 3 and clear to auscultation bilaterally Airway Mallampati: Class II Dentition: full History/ROS No significant history except as noted Pulmonary None reported CV/HEM None reported None reported Hepatic None reported GI None reported Metabolic Thyroid Disease [facility]/skel None reported Neuropsych None reported Anesthetic Plan ASA status: 2 Anesthesia: Anesthesia Evaluation and Regional (specify below) (epidural ) Risk of > 500 ml blood loss (7ml/kg in children): No Medications/Allergies Home Medications ?Medication ?Instructions ?Recorded ?Confirmed ?Last Taken ?Type levothyroxine 125 mcg tablet 125 mcg PO DAILY #90 tabs 04/12/24 08/23/24 08/23/24 Rx fanafbaf-yfa-Pw-FA 1 mg 1 tab PO DAILY 08/23/24 08/23/24 History tablet Allergies Allergy/AdvReac Type Severity Reaction Status Date / Time No Known Allergies Allergy Verified 08/23/24 20:50 Current Medications Generic Name Dose Route Start Last Admin Trade Name Freq PRN Reason Stop Dose Admin Dextrose/Lactated Ringer's 1,000 mls @ 125 mls/hr 08/23/24 20:30 08/24/24 00:55 Dextrose 5%-Lactated Ringers IV 125 mls/hr .Q8H LOREE Infusion Oxytocin 30 unit in 500 mls @ 1 mls/hr 08/23/24 20:30 08/23/24 22:45 Pitocin IV 0 milliunit/min .Q24H LOREE 0 mls/hr Titration Protocol 1 MILLIUNIT/MIN Ropivacaine 100 mg in 50 mls @ 10 mls/hr 08/23/24 23:45 08/24/24 01:27 Naropin Syringe EPIDURAL 10 mls/hr .Q5H LOREE Administration Sodium Chloride 1,000 mls @ 999 mls/hr 08/23/24 23:54 08/24/24 00:56 Sodium Chloride 0.9% IV Infused .Q1H1M PRN Infusion See label comments PFSH Anesthesia Medical History Abnormal LFTs PTSD (post-traumatic stress disorder) Major depressive disorder, recurrent BAL (acute kidney injury) Thyroid function study abnormality Proctitis Depression UTI (urinary tract infection) Pyelonephritis of left kidney Family History Grandfather Diabetes Mother Thyroid disease Grandmother Hypertension Denies family history of Colon cancer Ovarian cancer Prostate cancer Heart disease Breast cancer Uterine cancer Stroke Social History Smoking and tobacco/nicotine status: never used tobacco/nicotine Female Reproductive History : 1 Para: 0 Data Anesthesia 08/23/24 19:30 Short CBC 08/23/24 Range/Units 19:30 WBC 11.14 (3.29-11.43) 10^3/uL Hgb 9.50 L (11.27-16.99) g/dL Hct 32.2 L (36-47) % MCV 83.2 L (85-98) fl Plt Count 229 (157-399) 10^3/cmm Neut % (Auto) 79.8 % Neut # (Auto) 8.88 H (1.8-7.7) 10^3/uL Blood Bank 08/23/24 19:30 Blood Type A Positive Rho(D) Type Rh positive Antibody Screen Negative Cardiac Studies: 2 No Data to Display Anesthesia Procedures Epidural Time Out Performed: Yes Consents Signed: Procedure Consent Consent: requested by attending/covering physician, from patient, risks and benefits reviewed and patient agrees to proceed Lumbar Level: L3-L4 Epidural position: sitting Epidural procedure: sterile prep of area, 1% lidocaine to numb the area, 18 g needle, negative for paresthesia passed, neg for paresthesia, test dose given, 1.5% xylocaine 1:200k epi, 0.2% Ropivacaine bolus ml (5), placed PCEA, no systemic response, sterile dressing applied, L.U.D. no apparent complications and 0.2% Ropiavacaine @ mls/hr (10) Additional Comments: HALEY 6cm, catheter easily threaded to 5cm in the space. VS monitored throughout and remained stable. Pt educated on ASSISTED LIVING ADMINISTRATOR and reporting decreased pain with contractions.
--- NOTE | 2024-08-24 04:53 | PC.NURSE ---
catheter removed due to patient intolerance to indwelling catheter, notified
--- NOTE | 2024-08-24 04:56 | PC.NURSE ---
patient did not tolerate dill insertion and catheter had to be removed, catheter did not fully advance before patient could not tolerate pain
--- NOTE | 2024-08-24 06:29 | PC.NURSE ---
This RN attempted straight catheter at 0555. No urine returned, notified.
[2024-08-24] MEDS: dextrose 5%-lactated ringers 1,000 ML 125 ML IV (07:00)
[2024-08-24] MEDS: phenazopyridine 100 mg Tablet PO (07:47)
--- NOTE | 2024-08-24 09:41 | P.PCNOB_ITS ---
Delivery Note: Date of delivery: August 24, 2024 Pre-delivery diagnoses: Term Post-delivery diagnoses: Term delivered Procedure: Spontaneous vaginal delivery Delivering Physician: Shubham Ramírez MD Estimated blood loss (mL): 300 Delivery: The patient was noted to be complete and pushing, so was placed in the dorsal lithotomy position, prepped and draped in the usual sterile fashion for a vagi nal delivery. Pt. Noted to have epidural anesthesia. At 0921 the patient delivered a viable term female weighing 3600 g with scores of 8 and 9 at one and five minutes, respectively. The vertex was delivered spontaneously over intact perineum. The patient was asked to push and the head delivered spontaneously in the [place] position, over an intact perineum. A nuchal cord was checked and 1 noted, and relieved around head as necessary. At 30 seconds shoulder dystocia resolved with Angeline without complications, the anterior shoulder delivere and the posterior shoulder followed. The remainder of the infant was easily delivered and the oropharynx and nasopharynx was bulb suctioned. The infant was noted to have spontaneous cry and spontaneous movement of all four extremities. The cord was clamped x 2 and cut and noted to have 2 arteries and one vein. The was passed to the mother's abdomen where nursing personnel were in attendance. Cord blood was then obtained]. The placenta delivered intact spontaneously and the uterus was explored. 20 units of Pitocin was placed in the IV bag to firm the uterus. Examination of the cervix and vaginal vault did not reveal any lacerations. Examination of the perineum showed no laceration. The patient tolerated this procedure well, and recovered in L&D with her infant in their LDR. All sponge and needle counts were correct. Post-Delivery Status: Good and stable History History History 1 Term 0 Miscarriages/Ectopic Living Children A&P Assessment and plan (1) Term delivered: PDMP PDMP Reviewed: Not Reviewed Coding Level of Care Code Acute Code for Chg Fwd Diagnoses Term delivered O80
--- NOTE | 2024-08-24 10:42 | PC.NURSE ---
1000 latex free straight catheter 8 bulgarian used. 700 mL urine output. Pt tolerated well.
[2024-08-24] MEDS: lanolin oint 7 gm 1 APPLIC TOPICAL (15:13)
[2024-08-24] MEDS: ibuprofen 800 mg tablet PO ×2 (15:13→22:02)
[2024-08-24] MEDS: benzocaine-menthol 78 gm Canister 1 SPRAY TOPICAL (15:13)
[2024-08-24] MEDS: docusate sodium 100 mg Capsule PO (22:03)
[2024-08-24 22:20] LABS: Hematocrit 25.3 % (36-47); Mean Corpuscular HGB Conc 29.6 g/dL (30-55); Mean Corpuscular Hemoglobin 24.4 pg (27-33); Mean Corpuscular Volume 82.4 fl (85-98); Mean Platelet Volume 11.5 fL (7.4-10.4); Platelet Count 169 10^3/cmm (157-399); Red Blood Count 3.07 10^6/uL (3.85-5.65); White Blood Count 10.87 10^3/uL (3.29-11.43)
[2024-08-25 03:57] VITALS: BP 104/65; PULSE 55; RESP 16; TEMP 36.6; O2SAT 98
--- NOTE | 2024-08-25 08:22 | ANE.PACU2 ---
Inpatient post-anesthesia follow up: Airway intact: Yes Vital signs: Temperature 98.1 F Pulse Rate 60 Respiratory Rate 16 Blood Pressure 97/68 Pulse Oximetry 99 Oxygen Delivery Me thod Room Air Oxygen Flow Rate Fraction of Inspir ed Oxygen Hydration adequate: Yes Nausea and vomiting: No Pain level: 1 Mental status: Baseline Epidural Start/End: Epidural Start Date: 08/24/24 Epidural Start Time: 07:00 Epidural End Date: 08/24/24 Epidural End Time: 10:44
[2024-08-25] MEDS: docusate sodium 100 mg Capsule PO (09:23)
[2024-08-25] MEDS: PRENATAL VIT NO.130/IRON/FOLIC 1 EACH TABLET PO (09:23)
[2024-08-25] MEDS: levothyroxine 125 mcg Tablet PO (09:23)
[2024-08-25] MEDS: ibuprofen 800 mg tablet PO (09:23)
[2024-08-25 11:35] VITALS: BP 97/68; PULSE 60; RESP 16; TEMP 36.7; O2SAT 99
--- NOTE | 2024-08-25 12:05 | PM.OBGYDC ---
Discharge Providers WHEAT INSPECTOR Date of Admission: 08/23/24 19:17 Date of Discharge: 09/02/24 Attending Provider at Admission: Robert Nguyen MD Attending Provider at Discharge: Robert Nguyen MD Consults: none Primary WHEAT INSPECTOR: Robert Nguyen MD Primary Care Provider: Xiang Iverson MD Diagnoses at Discharge Discharge Diagnosis (1) Term delivered: Details from hospital stay: 23 y.o. G1 at 40 w 3 d no complications admitted for induction of labor patient progressed to complete dilatation fetus was reassuring throughout patient proceeded to have vaginal delivery with no lacerations patient did well and was discharged to home on the first day Status: Inactive Reason for Visit Reason for Visit: IOL Brief History: 23 y.o. G1 at 40 w 3 d no complications admitted for induction of labor Hospital Course Hospital Course 23 y.o. G1 at 40 w 3 d no complications admitted for induction of labor patient progressed to complete dilatation fetus was reassuring throughout patient proceeded to have vaginal delivery with no lacerations patient did well and was discharged to home on the first day Information Peripartum Data: Delivery Method: Vaginal Laceration description: None Episiotomy description: None complications: none Physical Exam Narrative: afebrile, VS normal comfortable, awake, alert Abd: soft, nontender. fundus firm Ext: no edema; nontender Urinary Catheter Management: Abreu Latex: Cath Placed During This Visit: yes, but has since been removed by the nurse Reason for Continuing Indwelling Catheter: Other Urinary Catheter Date of Insertion: 08/24/24 Urinary Catheter Time of Insertion: 01:45 Date Urinary Catheter Removed: 08/24/24 Time Urinary Catheter Discontinued: 02:10 Abreu Latex Free: Cath Placed During This Visit: yes, but has since been removed by the nurse Reason for Continuing Indwelling Catheter: Decision to DC Catheter Urinary Catheter Date of Insertion: 08/24/24 Urinary Catheter Time of Insertion: 03:15 Date Urinary Catheter Removed: 08/24/24 Time Urinary Catheter Discontinued: 03:16 History History History 1 Term 0 Miscarriages/Ectopic Living Children Discharge Data Studies Completed and Pending Laboratory Results WBC 10.87 10^3/uL (3.29-11.43) 08/24/24 22:10 RBC 3.07 10^6/uL (3.85-5.65) L 08/24/24 22:10 Hgb 7.50 g/dL (11.27-16.99) L 08/24/24 22:10 Hct 25.3 % (36-47) L 08/24/24 22:10 MCV 82.4 fl (85-98) L 08/24/24 22:10 MCH 24.4 pg (27-33) L 08/24/24 22:10 MCHC 29.6 g/dL (30-55) L 08/24/24 22:10 RDW 18.0 % (12.1-15.1) H 08/24/24 22:10 Plt Count 169 10^3/cmm (157-399) 08/24/24 22:10 MPV 11.5 fL (7.4-10.4) H 08/24/24 22:10 Neut % (Auto) 79.8 % 08/23/24 19:30 Lymph % (Auto) 12.7 % 08/23/24 19:30 [place] % (Auto) 6.3 % 08/23/24 19:30 Eos % (Auto) 0.4 % 08/23/24 19:30 Baso % (Auto) 0.3 % 08/23/24 19:30 Neut # (Auto) 8.88 10^3/uL (1.8-7.7) H 08/23/24 19:30 Lymph # (Auto) 1.4 10^3/uL (0.8-4.8) 08/23/24 19:30 [place] # (Auto) 0.7 10^3/uL (0.2-0.9) 08/23/24 19:30 Eos # (Auto) 0.1 10^3/uL (0.0-0.8) 08/23/24 19:30 Baso # (Auto) 0.0 10^3/uL (0.0-0.1) 08/23/24:30 Nucleated RBC % (auto) 0 % 08/23/24:30 Nucleated RBCs # 0.0 /100WBC 08/23/24:30 Urine Opiates Screen Negative ng/mL (Negative) 08/23/24: Ur Barbiturates Screen Negative ng/mL (Negative) 08/23/24: Ur Phencyclidine Scrn Negative ng/mL (Negative) 08/23/24 19:30 Ur Amphetamines Screen Negative ng/mL (Negative) 08/23/24 19:30 U Benzodiazepines Scrn Negative ng/mL (Negative) 08/23/24 19:30 Urine Cocaine Screen Negative ng/mL (Negative) 08/23/24 19:30 U Marijuana (THC) Screen Positive ng/mL (Negative) H 08/23/24 19:30 Blood Type A Positive 08/23/24 19:30 Rho(D) Type Rh positive 08/23/24 19:30 Antibody Screen Negative 08/23/24 19:30 Procedures Performed induction of labor vaginal delivery Vitals Last Vital Signs Temp 98.1 F 08/25/24 11:35 Pulse 60 08/25/24 11:35 Resp 16 08/25/24 11:35 BP 97/68 08/25/24 11:35 Pulse Ox 99 08/25/24 11:35 O2 Del Method Room Air 08/25/24 03:57 Results Labs OB ([facility]): Obstetrics US 07/12/24 Blood Type A Positive 08/23/24 Antibody Screen Negative 08/23/24 Hct 25.3 % (36-47) L 08/24/24 Hgb 7.50 g/dL (11.27-16.99) L 08/24/24 Rho(D) Type Rh positive 08/23/24 Plt Count 169 10^3/cmm (157-399) 08/24/24 Hep Bs Antigen Non-reactive (Nonreactive) 03/07/24 Hep B Core Total Ab Non-reactive (Nonreactive) 06/29/23 Hep Bs Antibody < 3.5 (11.5-1000) L 06/29/23 Hepatitis C Antibody Non-reactive (Nonreactive) 03/07/24 Rubella IgG Antibody > 500.0 IU/mL (0.0-10.0) H 03/07/24 RPR Nonreactive (Nonreactive) 03/07/24 HIV 1&2 Ab & HIV 1 Ag Non-reactive (Non-Reactiv) 03/07/24 TSH 2.49 uIU/mL (0.27-4.20) 06/28/24 Free T4 1.09 ng/dL (0.82-1.77) 06/28/24 C.trachomatis RNA (TMA) Not detected (NOT DETECTED) 03/07/24 N.gonorrhoeae RNA (TMA) Not detected (NOT DETECTED) 03/07/24 T. vaginalis Amp RNA Not detected (NOT DETECTED) 03/07/24 Chlamydia/GC Comment See note 03/07/24 Glucose 1 Hr 50 gm 118 mg/dL (85-140) 06/30/24 Hemoglobin A1c 4.8 % (4.0-6.0) 06/30/23 VZV IgG Antibody 2.00 S/CO 03/07/24 FSH 4.1 mIU/mL 07/01/23 Ser , Semi-Qnt 009722.00 mIU/mL 01/06/24 HCG, Qual Positive (Negative) H 01/06/24 Urine Opiates Screen Negative ng/mL (Negative) 08/23/24 Ur Barbiturates Screen Negative ng/mL (Negative) 08/23/24 Ur Phencyclidine Scrn Negative ng/mL (Negative) 08/23/24 Ur Amphetamines Screen Negative ng/mL (Negative) 08/23/24 U Benzodiazepines Scrn Negative ng/mL (Negative) 08/23/24 Urine Cocaine Screen Negative ng/mL (Negative) 08/23/24 U Marijuana (THC) Screen Positive ng/mL (Negative) H 08/23/24 Micro Urine Specimen 08/06/24 Pap Smear Interpret See note A 03/07/24 Prolactin 38.78 ng/mL (4.8-23.3) H 07/01/23 Discharge Plan Discharge Patient Disposition: Home Condition: Stable Prescriptions: New oxycodone-acetaminophen [Percocet] 5-325 mg tablet 1 tab PO BID PRN (Reason: pain) Qty: 10 0RF Continued levothyroxine 125 mcg tablet 125 mcg PO DAILY Qty: 90 2RF [id number] 1 mg Tablet 1 tab PO DAILY Discharge Orders: Discharge Order (Routine); Ordered 08/25/24 Ordered By: Robert Nguyen Referrals: Sara Babcock NP [Nurse Practitioner] - 10/04/24 8:45 am Discharge Diet: Usual diet Discharge Activity: Increase activity as tolerated Patient Instructions: Depression (DC), Expression, Collection and Storage of Breast Milk (DC), and Nipple Soreness (DC), and Breast Engorgement (DC), and Plugged Ducts (DC), How to Increase Your Milk Supply (DC), Effects of Smoking, Alcohol, and Medicines on (DC), Preeclampsia and Eclampsia After Delivery (GEN), Breast Care for the Mother (DC), OB Food/Drug Interaction Guide, Opioid Safety, OB Home Care, OB Vaginal Deliveries - [facility], Abnormal Bleeding Discharge Attestations WHEAT INSPECTOR Time Spent in Discharge Care*: less than 30 min Coding Level of Care Code Acute Code for Chg Fwd Diagnoses Term delivered O80
== END 2024-08-25 11:40 | disposition home or self-care (01) | DRG 807 ==
LOC: OPOB 19:17 → OBGYN 19:17
PROVIDERS: Obstetrics & Gynecology; Admitting Provider Obstetrics & Gynecology; PCP Family Medicine; Visit Provider Obstetrics & Gynecology
DX: O48.0 Post-term pregnancy (principal); Z37.0 Single live birth; Z3A.40 40 weeks gestation of pregnancy; O69.81X0 Labor and delivery complicated by cord around neck, without compression, not applicable or unspecified; O99.284 Endocrine, nutritional and metabolic diseases complicating childbirth; E06.3 Autoimmune thyroiditis; O66.0 Obstructed labor due to shoulder dystocia
CPT/HCPCS: 36415; 51702; 59025; 59409; 80306; 85025; 85027; 86850; 86900; J2590; J2795; J7030; J7121; J9999

== ENCOUNTER 2024-11-07 09:06 | Emergency (ER) | payer BC, MEDICAID, SELFPAY ==
--- NOTE | 2024-11-07 09:09 | ED_ITS ---
HPI - Abdominal Pain 2 General: Chief Complaint: Abdominal Pain Stated Complaint: abd pain Time Seen by Provider: 11/07/24 09:07 Source: patient Mode of arrival: ambulatory Limitations: no limitations History of Present Illness: Patient is a nice 23-year-old female presents to ED today along with her significant other for evaluation of upper abdominal pain. Patient states she initially began noticing approximately 2 weeks ago and noticed it more so after eating. She states over time symptoms have been less attributed to eating and seems to wax and wane intermittently. She has not had any vomiting. Has occasionally felt nauseous. She is currently rating her pain at a 4/10. She is passing stool and flatulence. She does states she had one episode of hematochezia a few days ago but has not had any since. No history of hemorrhoids. She is approximately 8 weeks and seems to be recovering well. She has not been running fevers. Patient does have a history of acid reflux. MD elicited complaint: abdominal pain Onset (ago): week(s) Pain Consistency: intermittent Location: Epigastric, LUQ and RUQ Severity: mild Pain scale (0-10): 4 Quality: dull Radiation: none Migration to: no migration Exacerbating factors: eating (when it first started) Relieving factors: nothing Associated Symptoms: Reports hematochezia (one episode) and nausea; Denies change in bowel habits, chills, constipation, GI cramping, diarrhea, dysuria, fever(s), hematuria, melena and vomiting Related Data Previous Rx's ?Medication ?Instructions ?Recorded levothyroxine 125 mcg tablet 125 mcg PO DAILY #90 tabs 04/12/24 medroxyprogesterone 150 mg/mL 150 mg IM ONCE #1 mL 01/29 intramuscular syringe (Depo-Provera) famotidine 40 mg tablet 40 mg PO BID 14 days #28 tab s 11/07/24 pantoprazole 40 mg tablet,delayed 40 mg PO DAILY 14 da ys #14 tabs 11/07/24 release (Protonix) Allergies Allergy/AdvReac Type Severity Reaction Status Date / Time Latex, Natural Rubber Allergy ALGY-Redness Verified 11/07/24 09:19 of Skin Review of Systems 2 Const: Denies: fever(s), chills, body aches, fatigue or malaise Card: Denies: chest pain Resp: Denies: dyspnea GI: Reports: abdominal pain, nausea and hematochezia (one episode); Denies: vomiting, diarrhea, constipation, GI cramping, change in bowel habits or melena : Denies: flank pain, dysuria, hematuria, vaginal odor or vaginal discharge Musc: Denies: back pain Neuro: Denies: headache(s), numbness in extremities, weakness in extremities or sensory changes PFSH ED 2 PFSH: Medical History Term delivered Abnormal LFTs PTSD (post-traumatic stress disorder) Major depressive disorder, recurrent BAL (acute kidney injury) Thyroid function study abnormality Proctitis Depression UTI (urinary tract infection) Pyelonephritis of left kidney Family History Grandfather Diabetes Mother Thyroid disease Grandmother Hypertension Denies family history of Colon cancer Ovarian cancer Prostate cancer Heart disease Breast cancer Uterine cancer Stroke Social History Smoking and tobacco/nicotine status: never used tobacco/nicotine Female Reproductive History: Para: 0 Physical Exam 2 Const: COMMON NORMALS: no acute distress, average body habitus, patient oriented x3, no limitations, healthy appearing, alert and well nourished G ENERAL APPEARANCE: cooperative ORIENTATION/CONSCIOUSNESS: Yes awake, Yes oriented to person, Yes oriented to place and Yes oriented to time Eye: COMMON NORMALS: no scleral icterus Resp: COMMON NORMALS: normal respiratory effort and clear to auscultation bilaterally AUSCULTATION: clear to auscultation bilaterally Cardio: COMMON NORMALS: regular rate and regular rhythm RATE: regular rate RHYTHM: regular rhythm GI: COMMON NORMALS: Normal to inspection, nondistended, normoactive bowel sounds present, Soft to palpation, No hepatosplenomegaly present and no masses INSPECTION: Yes normal to inspection AUSCULTATION: Yes normoactive bowel sounds PALPATION: Yes Soft to palpation, Yes Tenderness to palpation present (GI) (throughout upper abdomen; non-surgical examination), No Guarding due to palpation present (GI), No Rigid due to palpation and Yes No hepatosplenomegaly present : COMMON NORMALS: Yes no CVA tenderness BLADDER/KIDNEY EXAM: Yes no CVA tenderness Back/Pelvis: COMMON NORMALS: no CVA tenderness Extremity: GENERAL: Yes normal exam except as noted Neuro: COMMON NORMALS: patient oriented x3 SENSORIUM/ORIENTATION: Yes alert, Yes oriented to person, Yes oriented to place and Yes oriented to time Skin: COMMON NORMALS: no rashes or lesions noted GENERAL SKIN EXAM: no rashes or lesions noted Course 2 Vital Signs: Vital signs: Vital Signs Temperature 97.8 F 11/07/24 09:15 Pulse Rate 63 11/07/24 10:33 Blood Pressure 103/60 11/07/24 10:33 Pulse Oximetry 98 11/07/24 10:33 Oxygen Delivery Me thod Room Air 11/07/24 09:15 MDM - Abdominal Pain Medical Decision Making Patient clinically appears in no acute distress. Her abdomen examination is nonsurgical. Her blood work overall is completely unremarkable. UA is contaminated. Patient was provided a GI cocktail due to her upper abdominal discomfort clinically. This completely alleviated her symptoms. On re- examination, she is no longer having any discomfort and currently rating her pain at a 0/10. Patient will be trialed on H2/PPI over the next 2 weeks. Recommend follow-up with primary care. Dietary restrictions discussed. Return to ED precautions discussed. Medical Records I reviewed the patient's medical records. Lab Data I reviewed the patient's lab results. 11/07/24 09:48 11/07/24 09:48 Labs/Radiology: Laboratory Results WBC 5.66 10^3/uL (3.29-11.43) 11/07/24 09:48 RBC 4.46 10^6/uL (3.85-5.65) 11/07/24 09:48 Hgb 12.60 g/dL (11.27-16.99) 11/07/24 09:48 Hct 40.4 % (36-47) 11/07/24 09:48 MCV 90.6 fl (85-98) 11/07/24 09:48 MCH 28.3 pg (27-33) 11/07/24 09:48 MCHC 31.2 g/dL (30-55) 11/07/24 09:48 RDW 17.4 % (12.1-15.1) H 11/07/24 09:48 Plt Count 272 10^3/cmm (157-399) 11/07/24 09:48 MPV 10.7 fL (7.4-10.4) H 11/07/24 09:48 Neut % (Auto) 47.8 % 11/07/24 09:48 Lymph % (Auto) 35.9 % 11/07/24 09:48 [place] % (Auto) 8.3 % 11/07/24 09:48 Eos % (Auto) 6.2 % 11/07/24 09:48 Baso % (Auto) 1.6 % 11/07/24 09:48 Neut # (Auto) 2.71 10^3/uL (1.8-7.7) 11/07/24 09:48 Lymph # (Auto) 2.0 10^3/uL (0.8-4.8) 11/07/24 09:48 [place] # (Auto) 0.5 10^3/uL (0.2-0.9) 11/07/24 09:48 Eos # (Auto) 0.4 10^3/uL (0.0-0.8) 11/07/24 09:48 Baso # (Auto) 0.1 10^3/uL (0.0-0.1) 11/07/24 09:48 Nucleated RBC % (auto) 0 % 11/07/24 09:48 Nucleated RBCs # 0.0 /100WBC 11/07/24 09:48 Sodium 140 mmol/L (136-145) 11/07/24 09:48 Potassium 4.1 mmol/L (3.5-5.1) 11/07/24 09:48 Chloride 111 mmol/L (98-107) H 11/07/24 09:48 Carbon Dioxide 18 mmol/L (22-29) L 11/07/24 09:48 Anion Gap 15.1 (5-19) 11/07/24 09:48 BUN 22 mg/dL (6-20) H 11/07/24 09:48 Creatinine 0.7 mg/dL (0.5-0.9) 11/07/24 09:48 GFR Calculation 105.6 mL/min (90-130) 11/07/24 09:48 Glucose 79 mg/dL (65-115) 11/07/24 09:48 Calculated Osmolality 292 mOsm/kg (285-295) 11/07/24 09:48 Calcium 9.1 mg/dL (8.5-10.5) 11/07/24 09:48 Total Bilirubin 0.3 mg/dL (0.15-1.2) 11/07/24 09:48 AST 18 U/L (0-32) 11/07/24 09:48 ALT 23 U/L (0-33) 11/07/24 09:48 Alkaline Phosphatase 154 U/L (35-105) H 11/07/24 09:48 Total Protein 6.5 g/dL (6.6-8.7) L 11/07/24 09:48 Albumin 4.3 g/dL (3.5-5.2) 11/07/24 09:48 Globulin 2.2 g/dL (1.3-4.6) 11/07/24 09:48 Lipase 35 U/L (13-60) 11/07/24 09:48 HCG, Qual Negative (Negative) 11/07/24 09:48 Urine Color Yellow (Yellow) 11/07/24 10:01 Urine Appearance Clear (CLEAR) 11/07/24 10:01 Urine pH 6.0 (5-7) 11/07/24 10:01 Ur Specific [place] 1.022 (1.005-1.030) 11/07/24 10:01 Urine Protein Negative (Negative) 11/07/24 10:01 Urine Glucose (UA) Negative (Normal) 11/07/24 10:01 Urine Ketones Negative (Negative) 11/07/24 10:01 Urine Blood Negative (Negative) 11/07/24 10:01 Urine Nitrate Negative (Negative) 11/07/24 10:01 Urine Bilirubin Negative (Negative) 11/07/24 10:01 Urine Urobilinogen 0.2 mg/dL (Negative) 11/07/24 10:01 Ur Leukocyte Esterase 1+ (Negative) A 11/07/24 10:01 Urine RBC 0-2 /hpf (0-2) 11/07/24 10:01 Urine WBC 6-10 /hpf (0-5) 11/07/24 10:01 Ur Squamous Epith Cells 11-20 /hpf (0-5) H 11/07/24 10:01 Amorphous Sediment Not Reportable 11/07/24 10:01 Urine Bacteria 1+ /hpf (NONE) H 11/07/24 10:01 Hyaline Casts 0.40 /lpf 11/07/24 10:01 No radiology studies performed this visit Discharge Plan Discharge Patient Disposition: Home Clinical Impression: Acid reflux Qualifiers: Esophagitis presence: without esophagitis Qualified Code(s): K21.9 - Gastro- esophageal reflux disease without esophagitis Condition: Stable Prescriptions: New pantoprazole [Protonix] 40 mg tablet,delayed release (DR/EC) 40 mg PO DAILY 14 Days Qty: 14 0RF famotidine 40 mg tablet 40 mg PO BID 14 Days Qty: 28 0RF No Action medroxyprogesterone [Depo-Provera] 150 mg/mL syringe 150 mg IM ONCE Qty: 1 3RF Rx Instructions: inject IM every 3 months levothyroxine 125 mcg tablet 125 mcg PO DAILY Qty: 90 2RF Discharge Orders: Discharge ED (Routine); Ordered 11/07/24 Ordered By: Tejal Cortez Referrals: Xiang Ivesron MD [Primary Care Provider, Family Practice] Patient Instructions: Gastritis (DC), Diet for Stomach Ulcers and Gastritis (ED) Activity Restrictions/Additional Instructions: As we discussed, avoid spicy, acidic, salty foods. Will trial you on medications to help with your abdominal pain over the next 2 weeks. Please follow-up with primary care if symptoms are not improving. You may return to the emergency department at anytime for worsening abdominal pain, repetitive episodes of vomiting, fevers, generally feeling worse or unwell, or any other concerns you may have. Print Language: Citizen Of [place] Coding Level of Care Code ED Commercial Litigation Attorney for [employer]ebo Dubose
[2024-11-07 09:15] VITALS: BP 92/58; PULSE 55; TEMP 36.6; O2SAT 98; BMI 20.9
[2024-11-07] MEDS: lidocaine 2% viscous 15 ML, aluminum-mag hydrox-simethicon 30 ML, sucralfate oral liq 1 GM PO (09:50)
[2024-11-07 09:57] LABS: Basophils # 0.1 10^3/uL (0.0-0.1); Basophils % 1.6 %; Eosinophils # 0.4 10^3/uL (0.0-0.8); Eosinophils % 6.2 %; Hematocrit 40.4 % (36-47); Lymphocytes % 35.9 %; Mean Corpuscular HGB Conc 31.2 g/dL (30-55); Mean Corpuscular Hemoglobin 28.3 pg (27-33); Mean Corpuscular Volume 90.6 fl (85-98); Mean Platelet Volume 10.7 fL (7.4-10.4); Monocytes # 0.5 10^3/uL (0.2-0.9); Monocytes % 8.3 %; Neutrophils # 2.71 10^3/uL (1.8-7.7); Neutrophils % 47.8 %; Nucleated Red Blood Cells % 0 %; Platelet Count 272 10^3/cmm (157-399); Red Blood Count 4.46 10^6/uL (3.85-5.65); Red Cell Distribution Width 17.4 % (12.1-15.1); White Blood Count 5.66 10^3/uL (3.29-11.43)
[2024-11-07 10:14] LABS: HCG, Serum Qual Negative (Negative)
[2024-11-07 10:15] LABS: Alanine Aminotransferase 23 U/L (0-33); Albumin Level 4.3 g/dL (3.5-5.2); Alkaline Phosphatase 154 U/L (35-105); Anion Gap 15.1 (5-19); Aspartate Amino Transferase 18 U/L (0-32); Blood Urea Nitrogen 22 mg/dL (6-20); Calcium 9.1 mg/dL (8.5-10.5); Carbon Dioxide 18 mmol/L (22-29); Chloride 111 mmol/L (98-107); Creatinine Clr Calc Pharmacy 94.6756; Globulin 2.2 g/dL (1.3-4.6); Glomerular Filtration Rate 105.6 mL/min (90-130); Glucose 79 mg/dL (65-115); Lipase 35 U/L (13-60); Osmolality Calculated 292 mOsm/kg (285-295); Potassium 4.1 mmol/L (3.5-5.1); Sodium 140 mmol/L (136-145); Total Bilirubin 0.3 mg/dL (0.15-1.2); Total Protein 6.5 g/dL (6.6-8.7)
[2024-11-07 10:18] LABS: Bilirubin Urine Negative (Negative); Blood Urine Negative (Negative); Glucose Urine UA Negative (Normal); Ketones Urine Negative (Negative); Leukocyte Esterase Urine 1+ (Negative); Nitrate Urine Negative (Negative); Protein Urine Negative (Negative); Specific Gravity, Urine 1.022 (1.005-1.030); Urine Appearance Clear (CLEAR); Urine Color Yellow (Yellow); Urobilinogen Urine 0.2 mg/dL (Negative)
[2024-11-07 10:20] LABS: Add Urine Microscopic? YES; Bacteria Urine 1+ /hpf; RBC Urine 0-2 /hpf (0-2)
[2024-11-07 10:33] VITALS: BP 103/60; PULSE 63; O2SAT 98
[2024-11-07 11:00] VITALS: BP 103/60; PULSE 71; O2SAT 99
--- NOTE | 2024-11-10 09:51 | DCPLANNER ---
messaged [facility]pf[facility] for er f/u
== END 2024-11-07 11:20 | disposition home or self-care (01) ==
PROVIDERS: Emergency Provider Physician Assistant; PCP Family Medicine
DX: K21.9 Gastro-esophageal reflux disease without esophagitis (principal)
CPT/HCPCS: 80053; 81001; 83690; 84703; 85025; 99283; J9999

== ENCOUNTER → 2024-12-11 09:45 | Outpatient (BNVA) | payer BC, MEDICAID, SELFPAY | PROVIDERS: PCP Family Medicine; Visit Provider Internal Medicine | DX: E06.3 Autoimmune thyroiditis (principal); E03.4 Atrophy of thyroid (acquired) | CPT/HCPCS: 84439; 84443 ==